=== PATIENT | male | born 1985 | race Caucasian/White ===

== ENCOUNTER 2017-07-14 17:09 | Inpatient (IN) | payer SELFPAY ==
[~2017-07-14] VITALS: Ht 177.8 cm; Wt 84.4 kg
[2017-07-14 20:22] VITALS: BP 124/81
[2017-07-14] MEDS ORDERED: HEPARIN for IV BOLUS 10,000 UNIT/10 ML VIAL. IV PRN (21:00)
[2017-07-14] MEDS ORDERED: ACETAMINOPHEN 325 MG TABLET. PO PRN (21:00)
[2017-07-14] MEDS: MORPHINE SULFATE 4 MG/ML DISP.SYRIN. IV PRN (21:40)
[2017-07-14] MEDS: TEMAZEPAM 15 MG CAPSULE PO PRN (22:46)
[2017-07-14] MEDS: HYDROcodone/APAP 5/325MG 1 TAB TABLET PO PRN (22:47)
[2017-07-14 23:20] VITALS: BP 126/59
[2017-07-15 03:15] VITALS: BP 109/64
[2017-07-15] MEDS: HYDROcodone/APAP 5/325MG 1 TAB TABLET PO PRN ×5 (03:41→21:22)
[2017-07-15 05:40] LABS: BASO # 0.1 x10^3/uL (0.0-0.2); BASO % 1 % (0-3); EOS % 5 % (0-3); HEMATOCRIT 39.8 % (39.0-53.0); HEMOGLOBIN 13.5 g/dL (13.0-17.5); LYMPH % 16 % (24-48); MEAN CORPUSCULAR HEMOGLOBIN 33 pg (25-35); MEAN CORPUSCULAR HGB CONC 34 g/dL (31-37); MEAN CORPUSCULAR VOLUME 98 fL (79-100); MONO % 19 % (0-9); NEUT % 60 % (31-73); PLATELET COUNT 186 x10^3/uL (140-400); RED BLOOD COUNT 4.08 x10^6/uL (4.30-5.70); RED CELL DISTRIBUTION WIDTH 13.2 % (11.5-14.5); WHITE BLOOD COUNT 6.4 x10^3/uL (4.0-11.0)
[2017-07-15 05:44] LABS: CALCIUM 8.4 mg/dL (8.5-10.1); CREATININE 0.8 mg/dL (0.7-1.3); GFR 113.5
--- NOTE | 2017-07-15 07:10 | PDOC2 ---
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 He states that he had an episode of poison dale and then subsequently had what he describes as a viral event where he in a lot of his family had upper respiratory symptoms and fevers and chills for approximately a week. Following this he noted some fullness in his left lower extremity which gradually progressed towards pain. This prompted him to present for evaluation. Indeed he was found to have extensive left lower extremity deep vein thrombosis extending to and above the inguinal ligament. A she denies any family history of hypercoagulable condition or any previous episodes of deep vein thrombosis. 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 Otherwise he remains relatively active with his family. He denies any chest pain, or shortness of breath. A CT scan of the chest was performed revealing no evidence of pulmonary embolism. Past Medical History Cardiovascular: No pertinent hx Pulmonary: No pertinent hx GI: No pertinent hx Heme/Onc: No pertinent hx Psych: No pertinent hx Musculoskeletal: No pain Rheumatologic: No pertinent hx Infectious disease: No pertinent hx ENT: No pertinent hx Renal/: No pertinent hx Endocrine: No pertinent hx Dermatology: No pertinent hx Past Surgical History Past Surgical History He has no surgical history Family History Family History There is no family history for clotting disorders or deep vein thrombosis, his parents are both living and in good health Social History Social History He denies tobacco abuse, alcohol abuse, or illicit drug use Current Medications Current Medications Current Medications Morphine Sulfate 2 mg PRN Q2HR PRN IV PAIN Last administered on 07/14/17 21:40 ; Start 07/14/17 at 21:15 Acetaminophen/ Hydrocodone Bitart (Lortab 5/325) 1 tab PRN Q4HRS PRN PO MILD PAIN Last administered on 07/15/17 03:41; Start 07/14/17 at 21:00 Acetaminophen (Tylenol) 650 mg PRN Q6HRS PRN PO Headaches, Temp > 101.5F; Start 07/14/17 at 21:00 Heparin Sodium/ Dextrose 500 ml @ 0 mls/hr CONT PRN IV SEE I/O RECORD; Start at 21:00 Heparin Sodium (Porcine) (Heparin Sodium) 2,700 unit PRN Q6HRS PRN IV FOR UFH LEVEL LESS THAN 0.2; Start 07/14/17 at 21:00 Heparin Sodium (Porcine) (Heparin Sodium) 1,350 unit PRN Q6HRS PRN IV FOR UFH LEVEL 0.2 - 0.29; Start 07/14/17 at 21:00 Temazepam (Restoril) 15 mg PRN QHS PRN PO INSOMNIA Last administered on t 22:46; Start 07/14/17 at 21:00 Active Scripts Active Reported No Known Medications Prior To Admisstion (Info) Each 1 Each Allergies Allergies: Coded Allergies: No Known Allergies (Verified Allergy, Unknown, 07/14/17) Physical Exam General: Alert, Oriented X3, Cooperative, No acute distress HEENT: Atraumatic, PERRLA, EOMI Lungs: Clear to auscultation, Normal air movement Heart: Regular rate, Normal S1, Normal S2 Abdomen: Normal bowel sounds, Soft, No tenderness, No hepatosplenomegaly, No masses Extremities: No clubbing, No cyanosis, Normal pulses, Other (there is swelling of the left lower extremity at the thigh and the calf which is larger in circumference than the right lower extremity, there are no evidence of chronic venous insufficiency skin changes, there are no varicose veins.) Skin: No rashes, No breakdown, No significant lesion Neuro: Normal gait, Normal speech, Strength at 5/5 X4 ext, Sensation intact, Cranial nerves 3-12 NL MUSCULOSKELETAL: No joint tenderness, No deformity, No swelling, Full range of motion without pain Vitals VITALS Vital Signs Date Time Temp Pulse Resp B/P (MAP) Pulse Ox O2 Delivery O2 Flow Rate FiO2 07/15/17 04:41 20 96 Room Air 07/15/17 03:15 98.5 89 109/64 (79) 98.5 Labs Labs Laboratory Tests Test 07/14/17 22:30 07/15/17 04:30 07/15/17 05:00 Heparin Anti-Xa Act, Unfractionated 0.46 IU/mL (0.30-0.70) 0.38 IU/mL (0.30-0.70) White Blood Count 6.4 x10^3/uL (4.0-11.0) Red Blood Count 4.08 x10^6/uL (4.30-5.70) Hemoglobin 13.5 g/dL (13.0-17.5) Hematocrit 39.8 % (39.0-53.0) Mean Corpuscular Volume 98 fL (79-100) Mean Corpuscular Hemoglobin 33 pg (25-35) Mean Corpuscular Hemoglobin Concent 34 g/dL (31-37) Red Cell Distribution Width 13.2 % (11.5-14.5) Platelet Count 186 x10^3/uL (140-400) Neutrophils (%) (Auto) 60 % (31-73) Lymphocytes (%) (Auto) 16 % (24-48) Monocytes (%) (Auto) 19 % (0-9) Eosinophils (%) (Auto) 5 % (0-3) Basophils (%) (Auto) 1 % (0-3) Neutrophils # (Auto) 3.8 x10^3uL (1.8-7.7) Lymphocytes # (Auto) 1.0 x10^3/uL (1.0-4.8) Monocytes # (Auto) 1.2 x10^3/uL (0.0-1.1) Eosinophils # (Auto) 0.3 x10^3/uL (0.0-0.7) Basophils # (Auto) 0.1 x10^3/uL (0.0-0.2) Sodium Level 138 mmol/L (136-145) Potassium Level 4.0 mmol/L (3.5-5.1) Chloride Level 101 mmol/L (98-107) Carbon Dioxide Level 27 mmol/L (21-32) Anion Gap 10 (6-14) Blood Urea Nitrogen 11 mg/dL (8-26) Creatinine 0.8 mg/dL (0.7-1.3) Estimated GFR (Cockcroft-Gault) 113.5 Glucose Level 89 mg/dL (70-99) Calcium Level 8.4 mg/dL (8.5-10.1) Laboratory Tests Test 07/14/17 22:30 07/15/17 04:30 07/15/17 05:00 Heparin Anti-Xa Act, Unfractionated 0.46 IU/mL (0.30-0.70) 0.38 IU/mL (0.30-0.70) White Blood Count 6.4 x10^3/uL (4.0-11.0) Red Blood Count 4.08 x10^6/uL (4.30-5.70) Hemoglobin 13.5 g/dL (13.0-17.5) Hematocrit 39.8 % (39.0-53.0) Mean Corpuscular Volume 98 fL (79-100) Mean Corpuscular Hemoglobin 33 pg (25-35) Mean Corpuscular Hemoglobin Concent 34 g/dL (31-37) Red Cell Distribution Width 13.2 % (11.5-14.5) Platelet Count 186 x10^3/uL (140-400) Neutrophils (%) (Auto) 60 % (31-73) Lymphocytes (%) (Auto) 16 % (24-48) Monocytes (%) (Auto) 19 % (0-9) Eosinophils (%) (Auto) 5 % (0-3) Basophils (%) (Auto) 1 % (0-3) Neutrophils # (Auto) 3.8 x10^3uL (1.8-7.7) Lymphocytes # (Auto) 1.0 x10^3/uL (1.0-4.8) Monocytes # (Auto) 1.2 x10^3/uL (0.0-1.1) Eosinophils # (Auto) 0.3 x10^3/uL (0.0-0.7) Basophils # (Auto) 0.1 x10^3/uL (0.0-0.2) Sodium Level 138 mmol/L (136-145) Potassium Level 4.0 mmol/L (3.5-5.1) Chloride Level 101 mmol/L (98-107) Carbon Dioxide Level 27 mmol/L (21-32) Anion Gap 10 (6-14) Blood Urea Nitrogen 11 mg/dL (8-26) Creatinine 0.8 mg/dL (0.7-1.3) Estimated GFR (Cockcroft-Gault) 113.5 Glucose Level 89 mg/dL (70-99) Calcium Level 8.4 mg/dL (8.5-10.1) Images Images I did review his left lower extremity venous duplex which reveals extensive left lower extremity deep vein thrombosis extending to the level of the common femoral vein and above the inguinal ligament Assessment/Plan Assessment/Plan Unprovoked extensive left lower extremity deep vein thrombosis--I am not sure whether the patient's viral syndrome that he describes proceeding these events had any relation on the DVT that he now has. I will check genetic markers for hypercoagulable conditions. The entire [facility] hypercoagulable panel cannot be performed at this time since the patient is on anticoagulation already. I agree with continuation of therapeutic anticoagulation. I have communicated with interventional radiology and have recommended left lower extremity catheter directed thrombolytic therapy for iliofemoral deep vein thrombosis. The catheter access point will likely be through the popliteal vein. I discussed with the patient the procedure and the inherent risks but this will also be discussed by interventional radiology team that performs a procedure. All questions were answered to his satisfaction regarding this. I discussed that the procedure will help prevent future post phlebitic syndrome, and given his age I do think he would benefit from this. Following thrombolytic therapy, the patient can be transitioned to therapeutic anticoagulation with Xarelto. I will see him back in my clinic in 6 months for reevaluation and determination whether the patient will need continued anticoagulant therapy. I have ordered bilateral lower extremity graduated compression stockings 20-30 mmHg and he should use these during the day and remove them at night. The patient has no weightbearing restrictions and should not be on bed rest for deep vein thrombosis. Regular activity is recommended. All questions were answered to his and his 's satisfaction and again I will see him in 6 months in my office. Abel Bermeo DO, FACS, RPVI [employer] Vascular Surgery [facility] ABEL BERMEO Jul 15, 2017 07:10
[2017-07-15 07:44] VITALS: BP 119/73
[2017-07-15] MEDS ORDERED: ONDANSETRON ODT 4 MG TAB.RAPDIS. PO PRN (08:30)
[2017-07-15] MEDS ORDERED: ONDANSETRON PF 4 MG/2 ML VIAL. IV PRN ×2 (08:30→14:00)
--- NOTE | 2017-07-15 09:25 | PDOC ---
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 He wet to ER at [facility] and was found to have extensive LLE DVT extending from the popliteal vein through the left common iliac vein to the level of, but not including the IVC. His Left CIV appears somewhat narrow at the level of the R KRISSY raising possibility of May Thurner syndrome. He was placed on a heparin drip with his leg elevated, which has significantly improved leg swelling and comfort. We discussed treatment options including anticoagulation alone, vs catheter directed thrombolysis. Given extensive ileofemoral clot, his age, and lack of comorbidities, his is a good candidate for thrombolysis to improve his symptoms more rapidly, and to help minimize the chance/degree of post thrombotic syndrome. Will plan to start lysis on Tuesday. RINKU JEFFERY MD Jul 15, 2017 09:25
--- NOTE | 2017-07-15 09:48 | PDOC1 ---
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, noted acute onset left leg swelling, pain, NO signif past medical hx, US shows extensive DVT, and vasc sx has seen and plans on IR vein directed thrombolysis once he gets the heparin gtt over the weekend, NEver happened before, no recent travels or long rides but does have sedentary job, Denies fam hx of clots, hypercoag work up ordered with heme onc on board, Planned for xarelto x 6 mos and vasc sx will see him in 6 mso time Ambulate as tolerated Currently pain level is controlled Past Medical History Cardiovascular: No pertinent hx Pulmonary: No pertinent hx GI: No pertinent hx Heme/Onc: No pertinent hx Psych: No pertinent hx Musculoskeletal: No pain Rheumatologic: No pertinent hx Infectious disease: No pertinent hx ENT: No pertinent hx Renal/: No pertinent hx Endocrine: No pertinent hx Dermatology: No pertinent hx Past Surgical History Past Surgical History: No pertinent history Family History Family History: No Significant Social History Smoke: No ALCOHOL: none Drugs: None Current Medications Current Medications Current Medications Morphine Sulfate 2 mg PRN Q2HR PRN IV PAIN Last administered on 07/14/17 21:40 ; Start 07/14/17 at 21:15 Acetaminophen/ Hydrocodone Bitart (Lortab 5/325) 1 tab PRN Q4HRS PRN PO MILD PAIN Last administered on 07/15/17 09:30; Start 07/14/17 at 21:00 Acetaminophen (Tylenol) 650 mg PRN Q6HRS PRN PO Headaches, Temp > 101.5F; Start 07/14/17 at 21:00 Heparin Sodium/ Dextrose 500 ml @ 0 mls/hr CONT PRN IV SEE I/O RECORD; Start at 21:00 Heparin Sodium (Porcine) (Heparin Sodium) 2,700 unit PRN Q6HRS PRN IV FOR UFH LEVEL LESS THAN 0.2; Start 07/14/17 at 21:00 Heparin Sodium (Porcine) (Heparin Sodium) 1,350 unit PRN Q6HRS PRN IV FOR UFH LEVEL 0.2 - 0.29; Start 07/14/17 at 21:00 Temazepam (Restoril) 15 mg PRN QHS PRN PO INSOMNIA Last administered on t 22:46; Start 07/14/17 at 21:00 Ondansetron HCl (Zofran) 4 mg PRN Q6HRS PRN IV NAUSEA/VOMITING; Start 07/15/17 at 08:30 Ondansetron HCl (Zofran Odt) 4 mg PRN Q6HRS PRN PO NAUSEA/VOMITING; Start 07/15 at 08:30 Active Scripts Active Reported No Known Medications Prior To Admisstion (Info) Each 1 Each Allergies Allergies: Coded Allergies: No Known Allergies (Verified Allergy, Unknown, 07/14/17) ROS Review of System left leg pain, all else is neg Physical Exam General: Alert, Oriented X3, Cooperative, No acute distress HEENT: Atraumatic, PERRLA, EOMI, Mucous membr. moist/pink Lungs: Clear to auscultation, Normal air movement Heart: S1S2, RRR, no thrills, no rubs, no gallops Cardiovascular: S1, S2 Abdomen: Normal bowel sounds, Soft, No tenderness, No hepatosplenomegaly, No masses Male Genitals Exam: normal genitalia, normal prostate Rectal Exam: not examined Extremities: Other (left leg swollen up to the thigh, positive Homans sign, slightly warm to touch, palpabole pulses, no limited ROM) Skin: No rashes, No breakdown, No significant lesion Neuro: Normal gait, Normal speech, Strength at 5/5 X4 ext, Normal tone, Sensation intact, Cranial nerves 3-12 NL, Reflexes 2+ Vitals Vitals Vital Signs Date Time Temp Pulse Resp B/P (MAP) Pulse Ox O2 Delivery O2 Flow Rate FiO2 07/15/17 09:30 Room Air 07/15/17 07:44 98.7 95 19 119/73 (88) 96 98.7 Labs Labs Laboratory Tests Test 07/14/17 22:30 07/15/17 04:30 07/15/17 05:00 Heparin Anti-Xa Act, Unfractionated 0.46 IU/mL (0.30-0.70) 0.38 IU/mL (0.30-0.70) White Blood Count 6.4 x10^3/uL (4.0-11.0) Red Blood Count 4.08 x10^6/uL (4.30-5.70) Hemoglobin 13.5 g/dL (13.0-17.5) Hematocrit 39.8 % (39.0-53.0) Mean Corpuscular Volume 98 fL (79-100) Mean Corpuscular Hemoglobin 33 pg (25-35) Mean Corpuscular Hemoglobin Concent 34 g/dL (31-37) Red Cell Distribution Width 13.2 % (11.5-14.5) Platelet Count 186 x10^3/uL (140-400) Neutrophils (%) (Auto) 60 % (31-73) Lymphocytes (%) (Auto) 16 % (24-48) Monocytes (%) (Auto) 19 % (0-9) Eosinophils (%) (Auto) 5 % (0-3) Basophils (%) (Auto) 1 % (0-3) Neutrophils # (Auto) 3.8 x10^3uL (1.8-7.7) Lymphocytes # (Auto) 1.0 x10^3/uL (1.0-4.8) Monocytes # (Auto) 1.2 x10^3/uL (0.0-1.1) Eosinophils # (Auto) 0.3 x10^3/uL (0.0-0.7) Basophils # (Auto) 0.1 x10^3/uL (0.0-0.2) Sodium Level 138 mmol/L (136-145) Potassium Level 4.0 mmol/L (3.5-5.1) Chloride Level 101 mmol/L (98-107) Carbon Dioxide Level 27 mmol/L (21-32) Anion Gap 10 (6-14) Blood Urea Nitrogen 11 mg/dL (8-26) Creatinine 0.8 mg/dL (0.7-1.3) Estimated GFR (Cockcroft-Gault) 113.5 Glucose Level 89 mg/dL (70-99) Calcium Level 8.4 mg/dL (8.5-10.1) Laboratory Tests Test 07/14/17 22:30 07/15/17 04:30 07/15/17 05:00 Heparin Anti-Xa Act, Unfractionated 0.46 IU/mL (0.30-0.70) 0.38 IU/mL (0.30-0.70) White Blood Count 6.4 x10^3/uL (4.0-11.0) Red Blood Count 4.08 x10^6/uL (4.30-5.70) Hemoglobin 13.5 g/dL (13.0-17.5) Hematocrit 39.8 % (39.0-53.0) Mean Corpuscular Volume 98 fL (79-100) Mean Corpuscular Hemoglobin 33 pg (25-35) Mean Corpuscular Hemoglobin Concent 34 g/dL (31-37) Red Cell Distribution Width 13.2 % (11.5-14.5) Platelet Count 186 x10^3/uL (140-400) Neutrophils (%) (Auto) 60 % (31-73) Lymphocytes (%) (Auto) 16 % (24-48) Monocytes (%) (Auto) 19 % (0-9) Eosinophils (%) (Auto) 5 % (0-3) Basophils (%) (Auto) 1 % (0-3) Neutrophils # (Auto) 3.8 x10^3uL (1.8-7.7) Lymphocytes # (Auto) 1.0 x10^3/uL (1.0-4.8) Monocytes # (Auto) 1.2 x10^3/uL (0.0-1.1) Eosinophils # (Auto) 0.3 x10^3/uL (0.0-0.7) Basophils # (Auto) 0.1 x10^3/uL (0.0-0.2) Sodium Level 138 mmol/L (136-145) Potassium Level 4.0 mmol/L (3.5-5.1) Chloride Level 101 mmol/L (98-107) Carbon Dioxide Level 27 mmol/L (21-32) Anion Gap 10 (6-14) Blood Urea Nitrogen 11 mg/dL (8-26) Creatinine 0.8 mg/dL (0.7-1.3) Estimated GFR (Cockcroft-Gault) 113.5 Glucose Level 89 mg/dL (70-99) Calcium Level 8.4 mg/dL (8.5-10.1) VTE Prophylaxis Ordered VTE Prophylaxis Devices: Yes VTE Pharmacological Prophylaxi: Yes Assessment/Plan Assessment/Plan 1. extensive left lower extremity deep vein thrombosis extending to the level of the common femoral vein and above the inguinal ligament PLAN: Admit in pt HEparin gtt over the weekend Pain control both PO and iV NO NSAIDs as already on heparin gtt REg diet Ambulate ad alize as tolerated LYSIS TUESDAY Dw pt and family and RN SERG MUELLER MD Jul 15, 2017 09:48
[2017-07-15 09:52] LABS: % EOS 8 % (0-5); PLT ESTIMATE ADEQUATE (ADEQUATE)
[2017-07-15 10:20] VITALS: BP 118/67
[2017-07-15] MEDS: HEPARIN 25,000UTS/500ML PREMIX 500 ML IV PRN (10:57)
[2017-07-15 15:07] VITALS: BP 122/73
[2017-07-15] MEDS: MORPHINE SULFATE 4 MG/ML DISP.SYRIN. IV PRN ×2 (15:26→20:21)
[2017-07-15 19:30] VITALS: BP 122/78
--- NOTE | 2017-07-15 20:58 | CONS ---
DATE OF CONSULTATION: 07/15/2017 REQUESTING PHYSICIAN: Dr. Deo Munson. REASON FOR CONSULTATION: Extensive DVT of the left lower extremity. 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 He reports that initially he had poison oak in the left lower extremity and there was evidence of swelling, which then improved. Then, he started noticing worsening edema in the left lower extremity. He works for billing for [employer], and he spends most of his time sitting down at home working. He underwent left lower extremity venous Doppler at [facility] on 07/14/2017 which revealed extensive deep vein thrombosis in the left femoral and popliteal veins extending into the calf. He underwent CT angiogram of the chest on 07/14/2017 that did not reveal any evidence of pulmonary embolism. He also had a CT scan of the abdomen and pelvis on 07/14/2017 which revealed evidence of acute DVT within the left common femoral vein extending up to the level of inferior vena cava bifurcation. Right common iliac vein is patient. There is evidence of moderate hepatic steatosis. There is also evidence of circumferential bladder wall thickening, which may represent cystitis. He was transferred to [facility] and he was started on heparin drip. Vascular surgery was consulted and the patient was evaluated by Dr. Horacio Crouch. Hypercoagulable state workup with factor V Leiden and prothrombin gene mutation was ordered. Rest of the labs were not done because he is already on anticoagulation. Dr. Crouch recommended interventional radiology consultation to perform thrombolysis for the iliofemoral deep vein thrombosis. This would help prevent future post phlebitic syndrome given his young age. I was asked to see the patient for any further recommendations for DVT. PAST MEDICAL HISTORY: No history of DVT in the past. He denies any medical problems. SOCIAL HISTORY: No smoking or alcohol abuse. 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 FAMILY HISTORY: Grandmother had thromboembolic event. REVIEW OF SYSTEMS: A 12-point review of system was performed. Pertinent positives are mentioned in the history of present illness. Rest of the system review is negative. PHYSICAL EXAMINATION: GENERAL APPEARANCE: The patient is a 32-year-old gentleman who is in no acute cardiorespiratory distress. VITAL SIGNS: Blood pressure 118/67, temperature 98.5. HEENT: Atraumatic, normocephalic. Eyes: No icterus. NECK: Supple. CHEST: Bilaterally symmetrical. No crepitations or rhonchi heard. HEART: S1, S2 normal. ABDOMEN: Soft, nontender, no hepatosplenomegaly. CENTRAL NERVOUS SYSTEM: No focal deficits. LYMPHATICS: No lymphadenopathy. SKIN: No rashes. PSYCHOLOGIC: Mood and affect are appropriate. MUSCULOSKELETAL: He has left lower extremity edema. LABORATORY DATA: WBC is 6.4, hemoglobin 13.5, platelet count 186. Creatinine 0.8, calcium 8.4. IMPRESSION AND PLAN: 1. Deep vein thrombosis of the left lower extremity. Deep vein thrombosis extending up to the bifurcation of inferior vena cava. I appreciate vascular surgery consultation. I agree with the recommendations for thrombolysis, which should help with prevention of postphlebitic syndrome. I discussed with interventional radiology, Dr. Nasim Goldman. Dr. Goldman would plan to start thrombolysis on 07/18/2017. He mentioned that he may need at least 2 days of intervention. In the meantime, he will continue heparin. I agree with Dr. Horacio Crouch' recommendation to change to an oral anticoagulant prior to discharge. The patient will continue anticoagulation for 6 months and follow up with Dr. Horacio Crouch after 6 months for further recommendations regarding anticoagulation. I agree with the above ongoing management and no further recommendations at this time. Please call if needed. 2. Edema in the left lower extremity secondary to deep vein thrombosis. 3. CT scan of the chest, abdomen and pelvis is negative for malignancy. Clinically, he does not have any signs or symptoms to suggest malignancy. This is an unprovoked clot. Agree with hypercoagulable state workup as ordered. HUBERT POLLARD MD DR: MIAN/nadiya JOB#: [id number] / [id number] DEO FerreiraD
[2017-07-15] MEDS: TEMAZEPAM 15 MG CAPSULE PO PRN (21:08)
[2017-07-15 23:00] VITALS: BP 129/71
[2017-07-16] VITALS (7 sets, daily range): BP systolic 121–131; BP diastolic 53–82
--- NOTE | 2017-07-16 00:49 | ACF ---
Admission Forms Criteria DEEP VENOUS THROMBOSIS OF LOWER EXTREMITIES Clinical Indications for Admission to Inpatient Care ([place]/check or initial the applicable condition/criteria) Admission is indicated for 1 or more of the following(1)(2)(3)(4)(5)(6): [ ]I. Patient at high risk for acute complications (eg, hemorrhage) of anticoagulation indicated by1 or more of the following: [ ]a) Bleeding before anticoagulation [ ]b) Recent surgery (eg, within 3 months) that increases risk of catastrophic bleeding (eg, spinal surgery, intracranial surgery, cardiovascular surgery) [ ]c) Recent GIbleeding (eg, within 3 months) or known increased risk of GI bleed (eg, esophageal varices, current ulcer) [ ]d) Recent (eg, within 3 months) ischemic stroke [ ]e) History of intracranial bleeding (eg, hemorrhagic stroke) [ ]f) History of active bleeding when anticoagulated [ ]g) Active substance abuse [ ]h) Other risk factor thought to place patient at high risk such that ability to rapidly reverse anticoagulation is necessary (eg, discontinue parenteral unfractionated heparin, use of reversal agent) [ ]II. Limb-threatening thrombosis (eg, phlegmasia cerulea dolens) [ ]III. Thrombolysis (eg, catheter-directed) or pharmacomechanical thrombectomy needed[A][B](7) [ ]IV. Vena cava filter placement needed (eg, unable to anticoagulate)[C](7) [X]V. Thrombosis while on anticoagulation [ ]. with delivery planned (eg, 37 or more weeks' gestation) [ ]VII. Contraindication to outpatient use of medication with rapid anticoagulation effect[D]as indicated by ALL of the following: [ ]a) Contraindication to use of upj-urxbxvedl-jilydf heparin[E][F] indicated by1 or more of the following(11): [ ]1) Documented current or history of heparin-induced thrombocytopenia( 10) [ ]2) Severe thrombocytopenia (eg, platelet count less than 50,000/mm3( 50 x109/L)) [ ]3) Allergy to heparin, hxf-hdaxcemzj-zylqay heparin, or product components [ ]4) Renal failure (creatinine clearance less than 30 mL/min/1.73m2( 0.50 mL/sec/1.73m2) or on dialysis) [ ]5) Need for neuraxial anesthesia or spinal puncture anticipated [ ]6) Inability to manage self-injection (eg, by patient, caregiver, or visiting nurse) [ ]b) Contraindication to use of fondaparinux indicated by1 or more of the following: [ ]1) Documented current or history of heparin-induced thrombocytopenia( 10) [ ]2) Severethrombocytopenia (eg, platelet count less than 50,000/mm3(50 x109/L)) [ ]3) Allergy to fondaparinux, related drugs, or product components [ ]4) Renal failure (creatinine clearance less than 30 mL/min/1.73m2( 0.50 mL/sec/1.73m2) or on dialysis) [ ]5) [ ]6) Liver disease with coagulopathy (eg, elevated INR due to liver disease) [ ]7) Mechanical heart valve [ ]8) Need for neuraxial anesthesia or spinal puncture anticipated [ ]9) Inability to manage self-injection (eg, by patient,caregiver, or visiting nurse) [ ]c) Contraindication to use of oral direct thrombin inhibitor (eg, dabigatran) or oral coagulation factor Xa inhibitor (eg,rivaroxaban, apixaban)[E ][F]indicated by1 or moreof the following(12)(13): [ ]1) Severe thrombocytopenia (eg, platelet count less than 50,000/mm3( 50 x109/L)) [ ]2) Allergy to medication or product components [ ]3) Renal failure (creatinine clearance less than 30 mL/min/1.73m2( 0.50 mL/sec/1.73m2) or on dialysis) [ ]4) [ ]5) Liver disease with coagulopathy (eg, elevated INR due to liver disease) [ ]6) Mechanical heart valve [ ]7) Need for neuraxial anesthesia or spinal puncture anticipated [ ]VIII. Personal or family history of bleeding tendency or familial bleeding disorder that requires inpatient admission rather than observation care (see Deep Venous Thrombosis of Lower Extremities: Observation Care guideline as appropriate) because of1 or more of the following: [ ]a) Significant allergic, autoimmune (thrombocytopenia), or coagulopathic reaction occurs in response to anticoagulation. [ ]b) Other significant finding or clinical condition judged not to be within scope of observation care Extended stay beyond goal length of stay may be needed for(1)(26): [ ]a) Acute bleeding secondary to anticoagulation [ ]b) Inadequate oral anticoagulation [ ]c) Recurrent thromboembolism(7) [ ]d) Heparin-induced thrombocytopenia(10) The original [facility] content created by [facility] has been revised. The portions of the content which have been revised are identified through the use of italic text, and [facility] has neither reviewed nor approved the modified material. All other unmodified content is copyright [facility]. Please see references footnoted in the original [facility] edition 2014 Admission Criteria Met?: Yes EDUARDO GOMEZ Jul 16, 2017 00:49
[2017-07-16] MEDS: HYDROcodone/APAP 5/325MG 1 TAB TABLET PO PRN ×6 (01:58→23:07)
[2017-07-16] MEDS: MORPHINE SULFATE 4 MG/ML DISP.SYRIN. IV PRN ×4 (01:58→22:38)
[2017-07-16] MEDS: HEPARIN 25,000UTS/500ML PREMIX 500 ML IV PRN ×2 (02:02→18:33)
[2017-07-16 05:30] LABS: HEMATOCRIT 38.9 % (39.0-53.0); HEMOGLOBIN 13.7 g/dL (13.0-17.5); RED BLOOD COUNT 4.11 x10^6/uL (4.30-5.70); RED CELL DISTRIBUTION WIDTH 13.2 % (11.5-14.5); WHITE BLOOD COUNT 6.9 x10^3/uL (4.0-11.0)
[2017-07-16] MEDS: HEPARIN for IV BOLUS 10,000 UNIT/10 ML VIAL. IV PRN ×2 (07:42→21:57)
--- NOTE | 2017-07-16 10:30 | PDOC ---
PROGRESS NOTES Chief Complaint Chief Complaint 1. extensive left lower extremity deep vein thrombosis extending to the level of the common femoral vein and above the inguinal ligament History of Present Illness History of Present Illness No probs overnight Ambulating PAin controlled NO bleeding HEparin gtt running Dw Dr. Horacio Crouch Tuesday PLAN: Admit in pt HEparin gtt over the weekend Pain control both PO and iV NO NSAIDs as already on heparin gtt REg diet Ambulate ad alize as tolerated Vein directed LYSIS TUESDAY Then xarelto x 6 mos Ff up VAsc sx on month Dw pt and family and RN Vitals Vitals Vital Signs Date Time Temp Pulse Resp B/P (MAP) Pulse Ox O2 Delivery O2 Flow Rate FiO2 07/16/17 08:46 18 Room Air 07/16/17 07:26 99.8 106 131/81 (98) 95 99.8 Physical Exam General: Alert, Oriented X3, Cooperative, No acute distress Heart: Regular rate, Normal S1, Normal S2 Abdomen: Normal bowel sounds, Soft, No tenderness, No hepatosplenomegaly, No masses Extremities: Other (left leg swollen up to the thigh, positive Homans sign, slightly warm to touch, palpabole pulses, no limited ROM) Skin: No rashes, No breakdown, No significant lesion Labs LABS Laboratory Tests Test 07/16/17 05:00 White Blood Count 6.9 x10^3/uL (4.0-11.0) Red Blood Count 4.11 x10^6/uL (4.30-5.70) Hemoglobin 13.7 g/dL (13.0-17.5) Hematocrit 38.9 % (39.0-53.0) Mean Corpuscular Volume 95 fL (79-100) Mean Corpuscular Hemoglobin 33 pg (25-35) Mean Corpuscular Hemoglobin Concent 35 g/dL (31-37) Red Cell Distribution Width 13.2 % (11.5-14.5) Platelet Count 226 x10^3/uL (140-400) Heparin Anti-Xa Act, Unfractionated 0.24 IU/mL (0.30-0.70) Review of Systems Review of Systems denies 14 pt Comment Review of Relevant I have reviewed the following items pauline (where applicable) has been applied. Labs Laboratory Tests Test 07/14/17 22:30 07/15/17 04:30 07/15/17 05:00 07/16/17 05:00 Heparin Anti-Xa Act, Unfractionated 0.46 IU/mL (0.30-0.70) 0.38 IU/mL (0.30-0.70) 0.24 IU/mL (0.30-0.70) White Blood Count 6.4 x10^3/uL (4.0-11.0) 6.9 x10^3/uL (4.0-11.0) Red Blood Count 4.08 x10^6/uL (4.30-5.70) 4.11 x10^6/uL (4.30-5.70) Hemoglobin 13.5 g/dL (13.0-17.5) 13.7 g/dL (13.0-17.5) Hematocrit 39.8 % (39.0-53.0) 38.9 % (39.0-53.0) Mean Corpuscular Volume 98 fL (79-100) 95 fL (79-100) Mean Corpuscular Hemoglobin 33 pg (25-35) 33 pg (25-35) Mean Corpuscular Hemoglobin Concent 34 g/dL (31-37) 35 g/dL (31-37) Red Cell Distribution Width 13.2 % (11.5-14.5) 13.2 % (11.5-14.5) Platelet Count 186 x10^3/uL (140-400) 226 x10^3/uL (140-400) Neutrophils (%) (Auto) 60 % (31-73) Lymphocytes (%) (Auto) 16 % (24-48) Monocytes (%) (Auto) 19 % (0-9) Eosinophils (%) (Auto) 5 % (0-3) Basophils (%) (Auto) 1 % (0-3) Neutrophils # (Auto) 3.8 x10^3uL (1.8-7.7) Lymphocytes # (Auto) 1.0 x10^3/uL (1.0-4.8) Monocytes # (Auto) 1.2 x10^3/uL (0.0-1.1) Eosinophils # (Auto) 0.3 x10^3/uL (0.0-0.7) Basophils # (Auto) 0.1 x10^3/uL (0.0-0.2) Segmented Neutrophils % 52 % (35-66) Band Neutrophils % 1 % (0-9) Lymphocytes % 21 % (24-48) Monocytes % 18 % (0-10) Eosinophils % 8 % (0-5) Platelet Estimate Adequate (ADEQUATE) Sodium Level 138 mmol/L (136-145) Potassium Level 4.0 mmol/L (3.5-5.1) Chloride Level 101 mmol/L (98-107) Carbon Dioxide Level 27 mmol/L (21-32) Anion Gap 10 (6-14) Blood Urea Nitrogen 11 mg/dL (8-26) Creatinine 0.8 mg/dL (0.7-1.3) Estimated GFR (Cockcroft-Gault) 113.5 Glucose Level 89 mg/dL (70-99) Calcium Level 8.4 mg/dL (8.5-10.1) Laboratory Tests Test 07/16/17 05:00 White Blood Count 6.9 x10^3/uL (4.0-11.0) Red Blood Count 4.11 x10^6/uL (4.30-5.70) Hemoglobin 13.7 g/dL (13.0-17.5) Hematocrit 38.9 % (39.0-53.0) Mean Corpuscular Volume 95 fL (79-100) Mean Corpuscular Hemoglobin 33 pg (25-35) Mean Corpuscular Hemoglobin Concent 35 g/dL (31-37) Red Cell Distribution Width 13.2 % (11.5-14.5) Platelet Count 226 x10^3/uL (140-400) Heparin Anti-Xa Act, Unfractionated 0.24 IU/mL (0.30-0.70) Medications Current Medications Morphine Sulfate 2 mg PRN Q2HR PRN IV PAIN Last administered on 07/16/17 07:45 ; Start 07/14/17 at 21:15 Acetaminophen/ Hydrocodone Bitart (Lortab 5/325) 1 tab PRN Q4HRS PRN PO MILD PAIN Last administered on 07/16/17 08:46; Start 07/14/17 at 21:00 Acetaminophen (Tylenol) 650 mg PRN Q6HRS PRN PO Headaches, Temp > 101.5F; Start 07/14/17 at 21:00 Heparin Sodium/ Dextrose 500 ml @ 0 mls/hr CONT PRN IV SEE I/O RECORD Last administered on 07/16/17 02:02; Start 07/14/17 at 21:00 Heparin Sodium (Porcine) (Heparin Sodium) 2,700 unit PRN Q6HRS PRN IV FOR UFH LEVEL LESS THAN 0.2; Start 07/14/17 at 21:00 Heparin Sodium (Porcine) (Heparin Sodium) 1,350 unit PRN Q6HRS PRN IV FOR UFH LEVEL 0.2 - 0.29 Last administered on 07/16/17 07:42; Start 07/14/17 at 21:00 Temazepam (Restoril) 15 mg PRN QHS PRN PO INSOMNIA Last administered on 21:08; Start 07/14/17 at 21:00 Ondansetron HCl (Zofran) 4 mg PRN Q6HRS PRN IV NAUSEA/VOMITING; Start 07/15/17 at 08:30; Stop 07/15/17 at 13:49; Status DC Ondansetron HCl (Zofran Odt) 4 mg PRN Q6HRS PRN PO NAUSEA/VOMITING; Start 07/15 at 08:30 Ondansetron HCl (Zofran) 4 mg PRN Q6HRS PRN IV NAUSEA/VOMITING; Start 07/15/17 at 14:00 Info (Anti-Coagulation Monitoring By Pharmacy) 1 each PRN DAILY PRN MC SEE COMMENTS; Start 07/15/17 at 14:00 Active Scripts Active Reported No Known Medications Prior To Admisstion (Info) Each 1 Each Vitals/I & O Vital Sign - Last 24 Hours 07/15/17 07/15/17 07/15/17 07/15/17 13:08 14:11 15:07 15:26 Temp 98.8 98.8 Pulse 97 Resp 18 B/P (MAP) 122/73 (89) Pulse Ox 97 97 98 O2 Delivery Room Air Room Air Room Air 07/15/17 07/15/17 07/15/17 07/15/17 17:00 17:12 19:30 19:45 Temp 99.1 99.1 Pulse 102 Resp 22 B/P (MAP) 122/78 (93) Pulse Ox 98 97 O2 Delivery Room Air Room Air Room Air 07/15/17 07/15/17 07/15/17/26/17 20:21 21:22 23:00 01:58 Temp 99.8 99.8 Pulse 104 Resp 18 20 22 18 B/P (MAP) 129/71 (90) Pulse Ox 96 O2 Delivery Room Air Room Air Room Air Room Air 07/16/17 07/16/17 07/16/17 07/16/17 01:58 02:28 02:58 03:40 Temp 99.1 99.1 Pulse 104 Resp 20 20 20 22 B/P (MAP) 126/68 (87) Pulse Ox 95 O2 Delivery Room Air Room Air Room Air Room Air 07/16/17 07/16/17 07/16/17 07/16/17 07:26 07:45 08:00 08:46 Temp 99.8 99.8 Pulse 106 Resp 22 18 18 B/P (MAP) 131/81 (98) Pulse Ox 95 O2 Delivery Room Air Room Air Room Air Room Air Intake and Output 07/15/17 07/15/17 07/16/17 15:00 23:00 07:00 Intake Total 240 ml 1000 ml 636 ml Balance 240 ml 1000 ml 636 ml SERG MUELLER MD Jul 16, 2017 10:30
[2017-07-16] MEDS: ANTI-COAG MONITOR BY PHARMACY. MC PRN (11:27)
[2017-07-16] MEDS: TEMAZEPAM 15 MG CAPSULE PO PRN (21:59)
[2017-07-17] MEDS: HYDROcodone/APAP 5/325MG 1 TAB TABLET PO PRN ×5 (03:15→23:20)
[2017-07-17 03:35] VITALS: BP 102/56
[2017-07-17 07:30] VITALS: BP 123/78
[2017-07-17] MEDS: ANTI-COAG MONITOR BY PHARMACY. MC PRN (08:37)
[2017-07-17] MEDS: HEPARIN 25,000UTS/500ML PREMIX 500 ML IV PRN ×2 (09:02→21:20)
[2017-07-17] MEDS: MORPHINE SULFATE 4 MG/ML DISP.SYRIN. IV PRN ×4 (09:57→23:20)
[2017-07-17 11:00] VITALS: BP 113/64
--- NOTE | 2017-07-17 11:54 | PDOC ---
PROGRESS NOTES Chief Complaint Chief Complaint 1. extensive left lower extremity deep vein thrombosis extending to the level of the common femoral vein and above the inguinal ligament 2. FEVERS (07/17) History of Present Illness History of Present Illness Started to have low grade temps last night Tmax 100.3 NOt coughing Likely from the extensive DVT left leg IS ambulating as tolerated PAin is controlled PLAN: HEparin gtt over the weekend Lysis planned on tuesday by iR. NPO post MN Then home on xarelto x 6 mos - dw Dr. Horacio Elizondo To ff up Dr. Horacio Elizondo after6 mos - Dw. VAsc sx MAy check UA (fevers) TYlenol prn for fevers Dw RN Pepito Vitals Vitals Vital Signs Date Time Temp Pulse Resp B/P (MAP) Pulse Ox O2 Delivery O2 Flow Rate FiO2 07/17/17 11:00 98.8 102 18 113/64 (80) 94 Room Air 98.8 Physical Exam General: Alert, Oriented X3, Cooperative, No acute distress Heart: Regular rate, Normal S1, Normal S2 Abdomen: Normal bowel sounds, Soft, No tenderness, No hepatosplenomegaly, No masses Extremities: Other (left leg swollen up to the thigh, positive Homans sign, slightly warm to touch, palpabole pulses, no limited ROM) Skin: No rashes, No breakdown, No significant lesion Labs LABS Laboratory Tests Test 07/16/17 13:15 07/16/17 20:40 07/17/17 04:00 07/17/17 10:00 Heparin Anti-Xa Act, Unfractionated 0.33 IU/mL (0.30-0.70) 0.29 IU/mL (0.30-0.70) 0.39 IU/mL (0.30-0.70) 0.36 IU/mL (0.30-0.70) Review of Systems Review of Systems fevers, stable left leg pain Comment Review of Relevant I have reviewed the following items pauline (where applicable) has been applied. Labs Laboratory Tests Test 07/16/17 05:00 07/16/17 13:15 07/16/17 20:40 07/17/17 04:00 White Blood Count 6.9 x10^3/uL (4.0-11.0) Red Blood Count 4.11 x10^6/uL (4.30-5.70) Hemoglobin 13.7 g/dL (13.0-17.5) Hematocrit 38.9 % (39.0-53.0) Mean Corpuscular Volume 95 fL (79-100) Mean Corpuscular Hemoglobin 33 pg (25-35) Mean Corpuscular Hemoglobin Concent 35 g/dL (31-37) Red Cell Distribution Width 13.2 % (11.5-14.5) Platelet Count 226 x10^3/uL (140-400) Heparin Anti-Xa Act, Unfractionated 0.24 IU/mL (0.30-0.70) 0.33 IU/mL (0.30-0.70) 0.29 IU/mL (0.30-0.70) 0.39 IU/mL (0.30-0.70) Test 07/17/17 10:00 Heparin Anti-Xa Act, Unfractionated 0.36 IU/mL (0.30-0.70) Laboratory Tests Test 07/16/17 13:15 07/16/17 20:40 07/17/17 04:00 07/17/17 10:00 Heparin Anti-Xa Act, Unfractionated 0.33 IU/mL (0.30-0.70) 0.29 IU/mL (0.30-0.70) 0.39 IU/mL (0.30-0.70) 0.36 IU/mL (0.30-0.70) Medications Current Medications Morphine Sulfate 2 mg PRN Q2HR PRN IV PAIN Last administered on 07/17/17 09:57 ; Start 07/14/17 at 21:15 Acetaminophen/ Hydrocodone Bitart (Lortab 5/325) 1 tab PRN Q4HRS PRN PO MILD PAIN Last administered on 07/17/17 08:22; Start 07/14/17 at 21:00 Acetaminophen (Tylenol) 650 mg PRN Q6HRS PRN PO Headaches, Temp > 101.5F; Start 07/14/17 at 21:00 Heparin Sodium/ Dextrose 500 ml @ 0 mls/hr CONT PRN IV SEE I/O RECORD Last administered on 07/17/17 09:02; Start 07/14/17 at 21:00 Heparin Sodium (Porcine) (Heparin Sodium) 2,700 unit PRN Q6HRS PRN IV FOR UFH LEVEL LESS THAN 0.2; Start 07/14/17 at 21:00 Heparin Sodium (Porcine) (Heparin Sodium) 1,350 unit PRN Q6HRS PRN IV FOR UFH LEVEL 0.2 - 0.29 Last administered on 07/16/17 21:57; Start 07/14/17 at 21:00 Temazepam (Restoril) 15 mg PRN QHS PRN PO INSOMNIA Last administered on 21:59; Start 07/14/17 at 21:00 Ondansetron HCl (Zofran) 4 mg PRN Q6HRS PRN IV NAUSEA/VOMITING; Start 07/15/17 at 08:30; Stop 07/15/17 at 13:49; Status DC Ondansetron HCl (Zofran Odt) 4 mg PRN Q6HRS PRN PO NAUSEA/VOMITING; Start 07/15 at 08:30 Ondansetron HCl (Zofran) 4 mg PRN Q6HRS PRN IV NAUSEA/VOMITING; Start 07/15/17 at 14:00 Info (Anti-Coagulation Monitoring By Pharmacy) 1 each PRN DAILY PRN SEE COMMENTS Last administered on 07/17/17 08:37; Start 07/15/17 at 14:00 Active Scripts Active Reported No Known Medications Prior To Admisstion (Info) Each 1 Each Vitals/I & O Vital Sign - Last 24 Hours 07/16/17 07/16/17 07/16/17 07/16/17 13:57 13:58 15:30 15:31 Resp 18 18 18 18 Pulse Ox 95 95 95 O2 Delivery Room Air Room Air Room Air 07/16/17 07/16/17 07/16/17 07/16/17 15:42 17:54 19:15 20:00 Temp 99.6 98.6 99.6 98.6 Pulse 106 114 Resp 22 18 16 B/P (MAP) 121/82 (95) 122/71 (88) Pulse Ox 97 97 96 O2 Delivery Room Air Room Air Room Air Room Air 07/16/17 07/16/17 07/16/17 07/17/17 22:01 22:38 23:00 03:15 Temp 98.5 98.5 Pulse 103 Resp 18 B/P (MAP) 128/68 (88) Pulse Ox 100 O2 Delivery Room Air Room Air Room Air Room Air 07/17/17 07/17/17 07/17/17 07/17/17 03:35 07:30 08:00 08:22 Temp 100.0 99.9 100.0 99.9 Pulse 101 102 Resp 18 18 18 B/P (MAP) 102/56 (71) 123/78 (93) Pulse Ox 98 98 98 O2 Delivery Room Air Room Air Room Air Room Air 07/17/17 07/17/17 07/17/17 09:31 09:57 11:00 Temp 98.8 98.8 Pulse 102 Resp 18 18 B/P (MAP) 113/64 (80) Pulse Ox 98 98 94 O2 Delivery Room Air Room Air Room Air Intake and Output 07/16/17 07/16/17 07/17/17 15:00 23:00 07:00 Intake Total 1060 ml 828 ml Output Total 1000 ml Balance 1060 ml -172 ml SERG MUELLER MD Jul 17, 2017 11:54
[2017-07-17 14:01] LABS: BILIRUBIN,URINE NEGATIVE (NEG); GLUCOSE,URINE NEGATIVE (NEG); NITRITE,URINE NEGATIVE (NEG); PROTEIN,URINE NEGATIVE (NEG-TRACE); UROBILINOGEN,URINE 0.2 mg/dL (0.2 mg/dL)
[2017-07-17 14:20] LABS: BACTERIA,URINE 0 /HPF (0-FEW); RBC,URINE OCC /HPF (0-2); SQUAMOUS EPITHELIAL CELL,UR FEW /LPF; WBC,URINE 0 /HPF (0-4)
[2017-07-17 15:00] VITALS: BP 117/62
[2017-07-17 19:10] VITALS: BP 114/67
[2017-07-17] MEDS: TEMAZEPAM 15 MG CAPSULE PO PRN (19:31)
[2017-07-17 23:10] VITALS: BP 122/65
[2017-07-18] VITALS (16 sets, daily range): BP systolic 106–129; BP diastolic 57–89
[2017-07-18] MEDS: HYDROcodone/APAP 5/325MG 1 TAB TABLET PO PRN ×6 (03:21→23:03)
[2017-07-18] MEDS: MORPHINE SULFATE 4 MG/ML DISP.SYRIN. IV PRN ×5 (03:21→20:56)
[2017-07-18 05:38] LABS: BASO % 1 % (0-3); EOS % 6 % (0-3); HEMATOCRIT 39.1 % (39.0-53.0); HEMOGLOBIN 13.7 g/dL (13.0-17.5); LYMPH # 0.6 x10^3/uL (1.0-4.8); LYMPH % 14 % (24-48); MEAN CORPUSCULAR HEMOGLOBIN 33 pg (25-35); MEAN CORPUSCULAR HGB CONC 35 g/dL (31-37); MEAN CORPUSCULAR VOLUME 96 fL (79-100); MONO % 19 % (0-9); NEUT % 60 % (31-73); PLATELET COUNT 313 x10^3/uL (140-400); WHITE BLOOD COUNT 4.5 x10^3/uL (4.0-11.0)
[2017-07-18] MEDS ORDERED: LIDOCAINE 1% / SOD BICARB 8.4% 20 ML VIAL. IJ ONE ×2 (08:17→09:30)
[2017-07-18] MEDS ORDERED: IOHEXOL 300 MG/ML 100ML VIAL. ONE (08:17)
[2017-07-18 08:20] LABS: PROTHROMBIN TIME PATIENT 12.7 SEC (11.7-14.0)
[2017-07-18] MEDS ORDERED: ALTEPLASE 10 MG in IV NORMAL SALINE 100ML 100 ML IV ONE (08:45)
--- NOTE | 2017-07-18 08:53 | PDOC ---
PROGRESS NOTES Subjective Subjective c/c - f/u of DVT Objective Objective Vital Signs Date Time Temp Pulse Resp B/P (MAP) Pulse Ox O2 Delivery O2 Flow Rate FiO2 07/18/17 07:00 97.9 90 19 106/57 (73) 98 Room Air 97.9 Intake and Output 07/18/17 07:00 Intake Total 400 ml Balance 400 ml Intake Oral 400 ml Physical Exam Heart: Normal S1, Normal S2 General: Alert, Oriented X3 Lungs: Clear to auscultation Neuro: Normal speech Psych/Mental Status: Mental status NL Assessment Assessment IMPRESSION AND PLAN: 1. Deep vein thrombosis of the left lower extremity, unprovoked. Deep vein thrombosis extending up to the bifurcation of inferior vena cava. I appreciate vascular surgery consultation. I agree with the recommendations for thrombolysis, which should help with prevention of postphlebitic syndrome. I discussed with interventional radiology, Dr. Nasim Goldman. Dr. Goldman would plan to start thrombolysis on 07/18/2017. He mentioned that he may need at least [address] scan of the chest, abdomen and pelvis is negative for malignancy. Clinically, he does not have any signs or symptoms to suggest malignancy. Agree with hypercoagulable state workup as ordered. I agree with Dr. Horacio Crouch' recommendation to change to an oral anticoagulant prior to discharge. The patient will continue anticoagulation for 6 months and follow up with Dr. Horacio Crouch after 6 months for further recommendations regarding anticoagulation. I agree with the above ongoing management and no further recommendations at this time. Please call if needed. 2. Edema in the left lower extremity secondary to deep vein thrombosis. Improving. Comment Review of Relevant I have reviewed the following items pauline (where applicable) has been applied. Labs Laboratory Tests Test 07/16/17 13:15 07/16/17 20:40 07/17/17 04:00 07/17/17 10:00 Heparin Anti-Xa Act, Unfractionated 0.33 IU/mL (0.30-0.70) 0.29 IU/mL (0.30-0.70) 0.39 IU/mL (0.30-0.70) 0.36 IU/mL (0.30-0.70) Test 07/17/17 12:00 07/18/17 04:57 Urine Collection Type Unknown Urine Color Yellow Urine Clarity Clear Urine pH 7.0 Urine Specific [place] 1.015 Urine Protein Negative mg/dL (NEG-TRACE) Urine Glucose (UA) Negative mg/dL (NEG) Urine Ketones (Stick) Negative mg/dL (NEG) Urine Blood Negative (NEG) Urine Nitrite Negative (NEG) Urine Bilirubin Negative (NEG) Urine Urobilinogen Dipstick 0.2 mg/dL (0.2 mg/dL) Urine Leukocyte Esterase Negative (NEG) Urine RBC Occ /HPF (0-2) Urine WBC 0 /HPF (0-4) Urine Squamous Epithelial Cells Few /LPF Urine Bacteria 0 /HPF (0-FEW) Urine Mucus Marked /LPF White Blood Count 4.5 x10^3/uL (4.0-11.0) Red Blood Count 4.10 x10^6/uL (4.30-5.70) Hemoglobin 13.7 g/dL (13.0-17.5) Hematocrit 39.1 % (39.0-53.0) Mean Corpuscular Volume 96 fL (79-100) Mean Corpuscular Hemoglobin 33 pg (25-35) Mean Corpuscular Hemoglobin Concent 35 g/dL (31-37) Red Cell Distribution Width 13.0 % (11.5-14.5) Platelet Count 313 x10^3/uL (140-400) Neutrophils (%) (Auto) 60 % (31-73) Lymphocytes (%) (Auto) 14 % (24-48) Monocytes (%) (Auto) 19 % (0-9) Eosinophils (%) (Auto) 6 % (0-3) Basophils (%) (Auto) 1 % (0-3) Neutrophils # (Auto) 2.7 x10^3uL (1.8-7.7) Lymphocytes # (Auto) 0.6 x10^3/uL (1.0-4.8) Monocytes # (Auto) 0.8 x10^3/uL (0.0-1.1) Eosinophils # (Auto) 0.3 x10^3/uL (0.0-0.7) Basophils # (Auto) 0.0 x10^3/uL (0.0-0.2) Prothrombin Time 12.7 SEC (11.7-14.0) Prothromb Time International Ratio 1.0 (0.8-1.1) Activated Partial Thromboplast Time 52 SEC (24-38) Heparin Anti-Xa Act, Unfractionated 0.21 IU/mL (0.30-0.70) Laboratory Tests Test 07/17/17 10:00 07/17/17 12:00 07/18/17 04:57 Heparin Anti-Xa Act, Unfractionated 0.36 IU/mL (0.30-0.70) 0.21 IU/mL (0.30-0.70) Urine Collection Type Unknown Urine Color Yellow Urine Clarity Clear Urine pH 7.0 Urine Specific [place] 1.015 Urine Protein Negative mg/dL (NEG-TRACE) Urine Glucose (UA) Negative mg/dL (NEG) Urine Ketones (Stick) Negative mg/dL (NEG) Urine Blood Negative (NEG) Urine Nitrite Negative (NEG) Urine Bilirubin Negative (NEG) Urine Urobilinogen Dipstick 0.2 mg/dL (0.2 mg/dL) Urine Leukocyte Esterase Negative (NEG) Urine RBC Occ /HPF (0-2) Urine WBC 0 /HPF (0-4) Urine Squamous Epithelial Cells Few /LPF Urine Bacteria 0 /HPF (0-FEW) Urine Mucus Marked /LPF White Blood Count 4.5 x10^3/uL (4.0-11.0) Red Blood Count 4.10 x10^6/uL (4.30-5.70) Hemoglobin 13.7 g/dL (13.0-17.5) Hematocrit 39.1 % (39.0-53.0) Mean Corpuscular Volume 96 fL (79-100) Mean Corpuscular Hemoglobin 33 pg (25-35) Mean Corpuscular Hemoglobin Concent 35 g/dL (31-37) Red Cell Distribution Width 13.0 % (11.5-14.5) Platelet Count 313 x10^3/uL (140-400) Neutrophils (%) (Auto) 60 % (31-73) Lymphocytes (%) (Auto) 14 % (24-48) Monocytes (%) (Auto) 19 % (0-9) Eosinophils (%) (Auto) 6 % (0-3) Basophils (%) (Auto) 1 % (0-3) Neutrophils # (Auto) 2.7 x10^3uL (1.8-7.7) Lymphocytes # (Auto) 0.6 x10^3/uL (1.0-4.8) Monocytes # (Auto) 0.8 x10^3/uL (0.0-1.1) Eosinophils # (Auto) 0.3 x10^3/uL (0.0-0.7) Basophils # (Auto) 0.0 x10^3/uL (0.0-0.2) Prothrombin Time 12.7 SEC (11.7-14.0) Prothromb Time International Ratio 1.0 (0.8-1.1) Activated Partial Thromboplast Time 52 SEC (24-38) Medications Current Medications Morphine Sulfate 2 mg PRN Q2HR PRN IV PAIN Last administered on 07/18/17 03:21 ; Start 07/14/17 at 21:15 Acetaminophen/ Hydrocodone Bitart (Lortab 5/325) 1 tab PRN Q4HRS PRN PO MILD PAIN Last administered on 07/18/17 03:21; Start 07/14/17 at 21:00 Acetaminophen (Tylenol) 650 mg PRN Q6HRS PRN PO Headaches, Temp > 101.5F; Start 07/14/17 at 21:00 Heparin Sodium/ Dextrose 500 ml @ 0 mls/hr CONT PRN IV SEE I/O RECORD Last administered on 07/17/17 21:20; Start 07/14/17 at 21:00 Heparin Sodium (Porcine) (Heparin Sodium) 2,700 unit PRN Q6HRS PRN IV FOR UFH LEVEL LESS THAN 0.2; Start 07/14/17 at 21:00 Heparin Sodium (Porcine) (Heparin Sodium) 1,350 unit PRN Q6HRS PRN IV FOR UFH LEVEL 0.2 - 0.29 Last administered on 07/16/17 21:57; Start 07/14/17 at 21:00 Temazepam (Restoril) 15 mg PRN QHS PRN PO INSOMNIA Last administered on 19:31; Start 07/14/17 at 21:00 Ondansetron HCl (Zofran) 4 mg PRN Q6HRS PRN IV NAUSEA/VOMITING; Start 07/15/17 at 08:30; Stop 07/15/17 at 13:49; Status DC Ondansetron HCl (Zofran Odt) 4 mg PRN Q6HRS PRN PO NAUSEA/VOMITING; Start 07/15 at 08:30 Ondansetron HCl (Zofran) 4 mg PRN Q6HRS PRN IV NAUSEA/VOMITING; Start 07/15/17 at 14:00 Info (Anti-Coagulation Monitoring By Pharmacy) 1 each PRN DAILY PRN MC SEE COMMENTS Last administered on 07/17/17t 08:37; Start 07/15/17 at 14:00 Lidocaine/Sodium Bicarbonate (Buffered Lidocaine 1%) 20 ml STK-MED ONCE IJ ; Start 07/18/17 at 08:17; Stop 07/18/17 at 08:18; Status DC Heparin Sodium/ Sodium Chloride 500 ml @ As Directed STK-MED ONCE .ROUTE ; Start 07/18/17 at 08:17; Stop 07/18/17 at 08:18; Status DC Iohexol (Omnipaque 300 Mg/ml) 100 ml STK-MED ONCE .ROUTE ; Start 07/18/17 at 08: 17; Stop 07/18/17 at 08:18; Status DC Alteplase, Recombinant 10 mg/ Sodium Chloride 100 ml @ 0 mls/hr 1X ONCE IV ; Start 07/18/17 at 08:45; Stop 07/18/17 at 08:46; Status DC Heparin Sodium/ Sodium Chloride 500 ml @ As Directed STK-MED ONCE .ROUTE ; Start 07/18/17 at 08:42; Stop 07/18/17 at 08:43; Status DC Active Scripts Active Reported No Known Medications Prior To Admisstion (Info) Each 1 Each Vitals/I & O Vital Sign - Last 24 Hours 07/17/17 07/17/17 07/17/17 07/17/17 09:57 11:00 13:07 14:26 Temp 98.8 98.8 Pulse 102 Resp 18 18 18 B/P (MAP) 113/64 (80) Pulse Ox 98 94 94 94 O2 Delivery Room Air Room Air Room Air 07/17/17 07/17/17 07/17/17 07/17/17 14:40 15:00 16:35 19:10 Temp 98.4 98.7 98.4 98.7 Pulse 103 105 Resp 18 18 16 B/P (MAP) 117/62 (80) 114/67 (83) Pulse Ox 94 97 97 98 O2 Delivery Room Air Room Air Room Air 07/17/17 07/17/17 07/17/17 07/17/17 19:31 19:31 20:01 23:10 Temp 98.8 98.8 Pulse 93 Resp 18 18 15 B/P (MAP) 122/65 (84) Pulse Ox 98 O2 Delivery Room Air Room Air Room Air Room Air 07/17/17 07/17/17 07/18/17 07/18/17 23:20 23:20 03:10 03:21 Temp 98.5 98.5 Pulse 102 Resp 20 20 15 18 B/P (MAP) 114/68 (83) Pulse Ox 97 O2 Delivery Room Air Room Air Room Air Room Air 07/18/17 07/18/17 07/18/17 07/18/17 03:21 03:51 04:21 07:00 Temp 97.9 97.9 Pulse 90 Resp 20 18 18 19 B/P (MAP) 106/57 (73) Pulse Ox 98 O2 Delivery Room Air Room Air Room Air Room Air Intake and Output 07/17/17 07/17/17 07/18/17 15:00 23:00 07:00 Intake Total 400 ml 0 ml Balance 400 ml 0 ml HUBERT POLLARD MD Jul 18, 2017 08:53
[2017-07-18] MEDS ORDERED: fentaNYL PF VIAL 250 MCG/5 ML VIAL ONE (09:11)
[2017-07-18] MEDS ORDERED: MIDAZOLAM HCL/PF 5 MG/5 ML VIAL. ONE (09:11)
[2017-07-18] MEDS ORDERED: fentaNYL PF VIAL 250 MCG/5 ML VIAL IV ONE (09:30)
[2017-07-18] MEDS ORDERED: IOHEXOL 300 MG/ML 100ML VIAL. IART ONE (09:30)
[2017-07-18] MEDS ORDERED: CONTRAST GIVEN MC PRN (09:30)
[2017-07-18] MEDS ORDERED: MIDAZOLAM HCL/PF 5 MG/5 ML VIAL. IV ONE (09:30)
--- NOTE | 2017-07-18 10:06 | PDOC ---
MODERATE SEDATION ASSESSMENT RISKS/ALTERNATIVES Risks/Alternatives Risks and alternatives of this type of sedation and procedure discussed with: RISK/ALTERNATIVES: Patient H & P ON CHART H & P H & P on chart and reviewed for co-morbid conditions and appropriate labs. H&P ON CHART: Yes STATUS PREG STATUS ASSESSED: Yes MEDS/ALLERGIES REVIEWED Meds/Allergies Reviewed Medications and Allergies including time and route of recently administered narcotics and sedatives. MEDS/ALLERGIES REVIEWED: Yes ASA RATING ASA RATING: II AIRWAY ASSESSMENT Airway Assessment Airway patency, oral function limitations, presence of caps, crowns, dentures, partials, and ability to extend neck assessed. AIRWAY ASSESSMENT: Yes MALLAMPATI SCORE MALLAMPATI SCORE: II PRE-SEDATION ASSESSMENT PRE-SEDATION ASSESSMENT: Yes MICHOACANO MUNOZ MD Jul 18, 2017 10:06
--- NOTE | 2017-07-18 10:07 | PDOC ---
BRIEF OPERATIVE NOTE Pre-Op Diagnosis LLE DVT Post-Op Diagnosis same Procedure Performed PICC line. LLE venogram and thrombectomy and thrombolysis Surgeon Osbaldo Anesthesia Type: Conscious Sedation Findings Extensive occlusive LLE thrombosis Complications No immediate MICHOACANO MUNOZ MD Jul 18, 2017 10:07
[2017-07-18] MEDS: ALTEPLASE IV SCH ×3 (10:40→23:58)
[2017-07-18] MEDS: NORMAL SALINE IV SCH ×3 (10:40→23:58)
[2017-07-18] MEDS: ANTI-COAG MONITOR BY PHARMACY. MC PRN (11:11)
--- NOTE | 2017-07-18 14:58 | RAD ---
Procedure: Right upper extremity PICC line placement, and left lower extremity venogram, thrombectomy, and thrombolysis Clinical Indication: 32-year-old male with acute extensive left lower extremity DVT Sedation: Conscious sedation was administered for 32 minutes. The patient was monitored by a qualified independent observer throughout the time of sedation. Please refer to the medical record for exact doses of medications utilized to achieve moderate sedation. Antibiotics: None Exposure: Kerma-Area Product: 86 Gycm2 Contrast: 10 cc of Omnipaque 300 contrast media Sterility: All elements of maximal sterile barrier technique including the use of a cap, mask, sterile gown, sterile gloves, large sterile sheet, appropriate hand hygiene, and 2% chlorhexidine for cutaneous antisepsis (or acceptable alternative antiseptic per current guidelines) were followed for this procedure. Consent: The procedure was explained in its entirety to the patient or the patients designated inbound customer service representative by a member of the treatment team, including a discussion of the risks, benefits and commonly accepted alternatives to the procedure, as well as the expected consequences of no therapy whatsoever. Discussion of the risks included, but was not limited to, those that are most frequent and those that are rare but possibly severe or life-threatening, as well as the possibility of unforeseen complications. Technique and Findings: Following informed consent, the patient was prepped and draped in usual sterile fashion. Ultrasound interrogation of the right arm revealed patency of the right basilic vein. A Hardcopy ultrasound image was recorded. As a 21-gauge micropuncture needle was used to gain access to this vein. The needle was exchanged over wire for a 5 [place] peel-away sheath which was used to deploy a PICC line under fluoroscopic guidance such that the distal tip resided at the cavoatrial junction. All lumens flushed and aspirated with ease. The catheter was then affixed to the skin, and attention was turned to the left popliteal fossa which was prepped and draped in usual sterile fashion. Ultrasound interrogation revealed thrombosis of the popliteal vein. Once again a hardcopy ultrasound image was recorded as a 21-gauge micropuncture needle was used to gain access to this vein. The needle was exchanged over a wire for 6 Mexican sheath. Contrast venography was then performed demonstrating complete occlusion of the left popliteal vein extending to the iliac venous confluence. An angled catheter was advanced into the IVC and contrast venography demonstrated wide patency of the IVC. The catheter was then exchanged over a wire for the AngioJet catheter and suction thrombectomy was performed throughout the distribution of thrombus extending from the common iliac vein to the popliteal vein. This was followed by a power pulse spray infusion of TPA. 70 cc of 0.1% tPA was infused in this manner. The AngioJet was then removed and a 50 cm infusion catheter was advanced over the wire and positioned with the distal tip in the common femoral vein, and TPA infusion was initiated. Complications: No immediate Impression: 1. Ultrasound and fluoroscopic guided right upper extremity PICC line placement as described. 2. Left lower extremity venogram demonstrating complete thrombosis from the left common iliac vein to the popliteal vein. The IVC is patent. 3. Thrombectomy throughout the affected segment of the left lower extremity. 4. Initiation of thrombolysis throughout the affected segments of the left lower extremity vein as described.
--- NOTE | 2017-07-18 17:26 | PDOC ---
PROGRESS NOTES Chief Complaint Chief Complaint 1. EXTENSIVE L LE DVT up to the bifurcation of inferior vena cava: s/p thrombectomy/ thrombolysis today. cont anticoag protocol. appreciate Dr Olvera' s input: no evidence of underlying malignancy. Hypercoag W/U ongoing. plan for OAC (xarelto) at D/C for 6 months; F/U with Dr Horacio Crouch at that time for decisions re further anticoag needs. 2. LE edema: 2/2 DVT, improving 3. Pain: controlled on current regimen History of Present Illness History of Present Illness pain controlled. feels ok. no SOB or palpitations. abd pain resolved Vitals Vitals Vital Signs Date Time Temp Pulse Resp B/P (MAP) Pulse Ox O2 Delivery O2 Flow Rate FiO2 07/18/17 16:00 99.3 90 16 113/75 (88) 96 Room Air 99.3 07/18/17 10:52 2.0 Physical Exam General: Alert, Oriented X3, Cooperative, No acute distress Heart: Regular rate Lungs: Clear Abdomen: Normal bowel sounds, Soft, No tenderness Extremities: Other (left leg swollen up to the thigh, slightly warm to touch) Skin: No rashes Labs LABS Laboratory Tests Test 07/18/17 04:57 White Blood Count 4.5 x10^3/uL (4.0-11.0) Red Blood Count 4.10 x10^6/uL (4.30-5.70) Hemoglobin 13.7 g/dL (13.0-17.5) Hematocrit 39.1 % (39.0-53.0) Mean Corpuscular Volume 96 fL (79-100) Mean Corpuscular Hemoglobin 33 pg (25-35) Mean Corpuscular Hemoglobin Concent 35 g/dL (31-37) Red Cell Distribution Width 13.0 % (11.5-14.5) Platelet Count 313 x10^3/uL (140-400) Neutrophils (%) (Auto) 60 % (31-73) Lymphocytes (%) (Auto) 14 % (24-48) Monocytes (%) (Auto) 19 % (0-9) Eosinophils (%) (Auto) 6 % (0-3) Basophils (%) (Auto) 1 % (0-3) Neutrophils # (Auto) 2.7 x10^3uL (1.8-7.7) Lymphocytes # (Auto) 0.6 x10^3/uL (1.0-4.8) Monocytes # (Auto) 0.8 x10^3/uL (0.0-1.1) Eosinophils # (Auto) 0.3 x10^3/uL (0.0-0.7) Basophils # (Auto) 0.0 x10^3/uL (0.0-0.2) Prothrombin Time 12.7 SEC (11.7-14.0) Prothromb Time International Ratio 1.0 (0.8-1.1) Activated Partial Thromboplast Time 52 SEC (24-38) Heparin Anti-Xa Act, Unfractionated 0.21 IU/mL (0.30-0.70) GUNJAN BOBBY MD Jul 18, 2017 17:26
[2017-07-18 19:20] LABS: CREATININE 0.6 mg/dL (0.7-1.3); GFR 158.2; INR 1.6 (0.8-1.1); PROTHROMBIN TIME PATIENT 18.3 SEC (11.7-14.0)
[2017-07-18] MEDS: TEMAZEPAM 15 MG CAPSULE PO PRN (20:55)
[2017-07-19] VITALS (29 sets, daily range): BP systolic 98–137; BP diastolic 53–82
[2017-07-19 00:28] LABS: CALCIUM 8.7 mg/dL (8.5-10.1); CREATININE 0.7 mg/dL (0.7-1.3); GFR 132.4
[2017-07-19 00:29] LABS: INR 1.6 (0.8-1.1); PROTHROMBIN TIME PATIENT 18.2 SEC (11.7-14.0)
[2017-07-19] MEDS: MORPHINE SULFATE 4 MG/ML DISP.SYRIN. IV PRN ×5 (03:19→19:29)
[2017-07-19] MEDS ORDERED: IOHEXOL 300 MG/ML 100ML VIAL. ONE (07:46)
[2017-07-19] MEDS ORDERED: LIDOCAINE 1% / SOD BICARB 8.4% 20 ML VIAL. IJ ONE ×2 (07:47→09:00)
[2017-07-19 08:20] LABS: CALCIUM 8.7 mg/dL (8.5-10.1); CREATININE 0.7 mg/dL (0.7-1.3); GFR 132.4; POTASSIUM 4.1 mmol/L (3.5-5.1)
[2017-07-19] MEDS ORDERED: fentaNYL PF VIAL 100 MCG/2 ML VIAL ONE (08:33)
[2017-07-19] MEDS ORDERED: MIDAZOLAM HCL/PF 5 MG/5 ML VIAL. ONE (08:34)
[2017-07-19] MEDS ORDERED: MIDAZOLAM HCL/PF 5 MG/5 ML VIAL. IV ONE (09:00)
[2017-07-19] MEDS ORDERED: IOHEXOL 300 MG/ML 100ML VIAL. IART ONE (09:00)
[2017-07-19] MEDS ORDERED: fentaNYL PF VIAL 100 MCG/2 ML VIAL IV ONE (09:00)
[2017-07-19] MEDS ORDERED: CONTRAST GIVEN MC PRN (09:00)
--- NOTE | 2017-07-19 09:14 | PDOC ---
BRIEF OPERATIVE NOTE Pre-Op Diagnosis DVT Post-Op Diagnosis same Procedure Performed Thrombolysis day 2 and angioplasty of common and external iliac veins Surgeon Osbaldo Anesthesia Type: Conscious Sedation Findings Resolved DVT throughout the SFV with persistent dense occlusive thrombus in the CIV, EIV and CFV. This thrombus is denser and more organized than expected based on the clinical time course. An acute on chronic episode is suspected. Minimal improvement following angioplasty. Will resume thrombolysis. Anticipate mechanical thrombectomy, maceration and stent placement tomorrow. Complications No immediate MICHOACANO MUNOZ MD Jul 19, 2017 09:14
[2017-07-19 09:35] LABS: INR 1.3 (0.8-1.1); PROTHROMBIN TIME PATIENT 15.8 SEC (11.7-14.0)
--- NOTE | 2017-07-19 09:41 | RAD ---
Procedure: Left lower extremity venogram through existing catheter, venous thrombolysis dated 2, angioplasty of the left common and external iliac and common femoral veins. Clinical Indication: 32-year-old with extensive left lower extremity DVT undergoing thrombolysis Sedation: Conscious sedation was administered for 18 minutes. The patient was monitored by a qualified independent observer throughout the time of sedation. Please refer to the medical record for exact doses of medications utilized to achieve moderate sedation. Antibiotics: None Exposure: Kerma-Area Product: 88 Gycm2 Contrast: 80 cc of Omni view 300 Sterility: All elements of maximal sterile barrier technique including the use of a cap, mask, sterile gown, sterile gloves, large sterile sheet, appropriate hand hygiene, and 2% chlorhexidine for cutaneous antisepsis (or acceptable alternative antiseptic per current guidelines) were followed for this procedure. Consent: The procedure was explained in its entirety to the patient or the patients designated passenger representative by a member of the treatment team, including a discussion of the risks, benefits and commonly accepted alternatives to the procedure, as well as the expected consequences of no therapy whatsoever. Discussion of the risks included, but was not limited to, those that are most frequent and those that are rare but possibly severe or life-threatening, as well as the possibility of unforeseen complications. Technique and Findings: Following informed consent, the patient was prepped and draped in usual sterile fashion. Contrast venography was performed through the existing infusion catheter. This revealed persistent occlusive thrombosis throughout the external iliac and common femoral veins. The superficial femoral vein demonstrates wide patency with resolution of all previously seen thrombus. The catheter was then exchanged over a wire for a 7 mm x 80 mm angioplasty balloon and angioplasty of the left common iliac, external iliac, and common femoral veins was performed. Post angioplasty angiography demonstrated minimal improvement with significant amount of residual occlusive thrombus throughout this distribution. A 20 cm working length infusion catheter was then advanced over the wire and positioned across the area of persistent occlusion, and thrombolysis was resumed. Complications: No immediate Impression: 1. Post thrombolysis venogram demonstrating resolution of thrombus throughout the superficial femoral vein with persistent occlusive thrombus involving the left common femoral through common femoral iliac segments. 2. Angioplasty of the left common femoral through common iliac veins, with minimal improvement. 3. Resumption of pharmacological thrombolysis.
[2017-07-19] MEDS: HYDROcodone/APAP 5/325MG 1 TAB TABLET PO PRN ×3 (09:50→20:44)
[2017-07-19] MEDS: NORMAL SALINE IV SCH ×4 (11:55→23:05)
[2017-07-19] MEDS: ALTEPLASE IV SCH ×4 (11:55→23:05)
[2017-07-19 12:39] LABS: INR 1.5 (0.8-1.1); PROTHROMBIN TIME PATIENT 16.9 SEC (11.7-14.0)
--- NOTE | 2017-07-19 13:11 | PDOC ---
PROGRESS NOTES Chief Complaint Chief Complaint 1. EXTENSIVE L LE DVT up to the bifurcation of inferior vena cava: s/p thrombectomy/ thrombolysis today. cont anticoag protocol. appreciate Dr Roblero 's help w/ management. no evidence of underlying malignancy. Hypercoag W/U ongoing. plan for OAC (xarelto) at D/C for 6 months; F/U with Dr Horacio Crouch at that time for decisions re further anticoag needs. 2. Anticoag rx: monitor coags and H/H closely. replete with cryo x10 for Fibr <100, notify MD for Hgb drop of <1g/dl 3. LE edema: 2/2 DVT, improving 4. Pain: controlled on current regimen CC time: 35min History of Present Illness History of Present Illness pain controlled. feels ok. no SOB or palpitations. Vitals Vitals Vital Signs Date Time Temp Pulse Resp B/P (MAP) Pulse Ox O2 Delivery O2 Flow Rate FiO2 07/19/17 11:54 20 96 Room Air 07/19/17 10:15 84 121/81 (94) 07/19/17 10:00 07/19/17 09:30 98.9 98.9 Physical Exam General: Alert, Oriented X3, Cooperative, No acute distress Heart: Regular rate Lungs: Clear Abdomen: Normal bowel sounds, Soft, No tenderness Extremities: Other (left leg swollen up to the thigh, slightly warm to touch) Skin: No rashes Labs LABS Laboratory Tests Test 07/18/17 16:30 07/18/17 17:30 07/19/17 00:02 07/19/17 05:30 Fibrinogen 133 mg/dL (200-440) 108 mg/dL (200-440) 66 mg/dL (200-440) 139 mg/dL (200-440) Hemoglobin 14.0 g/dL (13.0-17.5) 13.7 g/dL (13.0-17.5) Prothrombin Time 18.3 SEC (11.7-14.0) 18.2 SEC (11.7-14.0) 15.8 SEC (11.7-14.0) Prothromb Time International Ratio 1.6 (0.8-1.1) 1.6 (0.8-1.1) 1.3 (0.8-1.1) Activated Partial Thromboplast Time 65 SEC (24-38) 60 SEC (24-38) 43 SEC (24-38) Sodium Level 133 mmol/L (136-145) 135 mmol/L (136-145) Potassium Level 4.0 mmol/L (3.5-5.1) 4.0 mmol/L (3.5-5.1) Chloride Level 97 mmol/L (98-107) 98 mmol/L (98-107) Carbon Dioxide Level 28 mmol/L (21-32) 28 mmol/L (21-32) Anion Gap 8 (6-14) 9 (6-14) Blood Urea Nitrogen 10 mg/dL (8-26) 9 mg/dL (8-26) Creatinine 0.6 mg/dL (0.7-1.3) 0.7 mg/dL (0.7-1.3) Estimated GFR (Cockcroft-Gault) 158.2 132.4 Glucose Level 93 mg/dL (70-99) 94 mg/dL (70-99) Calcium Level 9.0 mg/dL (8.5-10.1) 8.7 mg/dL (8.5-10.1) Test 07/19/17 06:00 07/19/17 12:00 Hemoglobin 13.5 g/dL (13.0-17.5) 13.9 g/dL (13.0-17.5) Sodium Level 135 mmol/L (136-145) Potassium Level 4.1 mmol/L (3.5-5.1) Chloride Level 99 mmol/L (98-107) Carbon Dioxide Level 29 mmol/L (21-32) Anion Gap 7 (6-14) Blood Urea Nitrogen 9 mg/dL (8-26) Creatinine 0.7 mg/dL (0.7-1.3) Estimated GFR (Cockcroft-Gault) 132.4 Glucose Level 94 mg/dL (70-99) Calcium Level 8.7 mg/dL (8.5-10.1) Prothrombin Time 16.9 SEC (11.7-14.0) Prothromb Time International Ratio 1.5 (0.8-1.1) Activated Partial Thromboplast Time 51 SEC (24-38) Fibrinogen 116 mg/dL (200-440) GUNJAN BOBBY MD Jul 19, 2017 13:11
[2017-07-19 14:24] LABS: PROTHROMBIN GENE MUTATION Negative (.)
[2017-07-19 14:59] LABS: CALCIUM 8.8 mg/dL (8.5-10.1); CREATININE 0.6 mg/dL (0.7-1.3); GFR 158.2
[2017-07-19] MEDS: ANTI-COAG MONITOR BY PHARMACY. MC PRN (15:01)
--- NOTE | 2017-07-19 16:50 | PDOC ---
PROGRESS NOTES Subjective Subjective c/c - f/u of Deep vein thrombosis of the left lower extremity ROS - improved LLE edema Objective Objective Vital Signs Date Time Temp Pulse Resp B/P (MAP) Pulse Ox O2 Delivery O2 Flow Rate FiO2 07/19/17 15:00 82 14 122/70 (87) 97 Room Air 07/19/17 12:00 98.9 98.9 07/19/17 10:00 Intake and Output 07/20/17 07:00 Intake Total 600 ml Output Total 1350 ml Balance -750 ml Intake Oral 600 ml Output Urine Total 1350 ml Physical Exam Heart: Normal S1, Normal S2 General: Alert, Oriented X3 Lungs: Clear to auscultation Assessment Assessment IMPRESSION AND PLAN: 1. Deep vein thrombosis of the left lower extremity, unprovoked. Deep vein thrombosis extending up to the bifurcation of inferior vena cava. I appreciate vascular surgery consultation. I agree with the recommendations for thrombolysis started 07/18/17. Appreciate IR management. I agree with Dr. Horacio Crouch' recommendation to change to an oral anticoagulant prior to discharge. The patient will continue anticoagulation for 6 months and follow up with Dr. Horacio Crouch after 6 months for further recommendations regarding anticoagulation. I d/w Dr Angelo. 2. Edema in the left lower extremity secondary to deep vein thrombosis. Improving. Comment Review of Relevant I have reviewed the following items pauline (where applicable) has been applied. Labs Laboratory Tests Test 07/18/17 04:57 07/18/17 10:30 07/18/17 16:30 07/18/17 17:30 White Blood Count 4.5 x10^3/uL (4.0-11.0) Red Blood Count 4.10 x10^6/uL (4.30-5.70) Hemoglobin 13.7 g/dL (13.0-17.5) 14.0 g/dL (13.0-17.5) Hematocrit 39.1 % (39.0-53.0) Mean Corpuscular Volume 96 fL (79-100) Mean Corpuscular Hemoglobin 33 pg (25-35) Mean Corpuscular Hemoglobin Concent 35 g/dL (31-37) Red Cell Distribution Width 13.0 % (11.5-14.5) Platelet Count 313 x10^3/uL (140-400) Neutrophils (%) (Auto) 60 % (31-73) Lymphocytes (%) (Auto) 14 % (24-48) Monocytes (%) (Auto) 19 % (0-9) Eosinophils (%) (Auto) 6 % (0-3) Basophils (%) (Auto) 1 % (0-3) Neutrophils # (Auto) 2.7 x10^3uL (1.8-7.7) Lymphocytes # (Auto) 0.6 x10^3/uL (1.0-4.8) Monocytes # (Auto) 0.8 x10^3/uL (0.0-1.1) Eosinophils # (Auto) 0.3 x10^3/uL (0.0-0.7) Basophils # (Auto) 0.0 x10^3/uL (0.0-0.2) Prothrombin Time 12.7 SEC (11.7-14.0) 18.3 SEC (11.7-14.0) Prothromb Time International Ratio 1.0 (0.8-1.1) 1.6 (0.8-1.1) Activated Partial Thromboplast Time 52 SEC (24-38) 65 SEC (24-38) Heparin Anti-Xa Act, Unfractionated 0.21 IU/mL (0.30-0.70) Nasal Screen MRSA (PCR) Negative (Negative) Fibrinogen 133 mg/dL (200-440) 108 mg/dL (200-440) Sodium Level 133 mmol/L (136-145) Potassium Level 4.0 mmol/L (3.5-5.1) Chloride Level 97 mmol/L (98-107) Carbon Dioxide Level 28 mmol/L (21-32) Anion Gap 8 (6-14) Blood Urea Nitrogen 10 mg/dL (8-26) Creatinine 0.6 mg/dL (0.7-1.3) Estimated GFR (Cockcroft-Gault) 158.2 Glucose Level 93 mg/dL (70-99) Calcium Level 9.0 mg/dL (8.5-10.1) Test 07/19/17 00:02 07/19/17 05:30 07/19/17 06:00 07/19/17 12:00 Hemoglobin 13.7 g/dL (13.0-17.5) 13.5 g/dL (13.0-17.5) 13.9 g/dL (13.0-17.5) Prothrombin Time 18.2 SEC (11.7-14.0) 15.8 SEC (11.7-14.0) 16.9 SEC (11.7-14.0) Prothromb Time International Ratio 1.6 (0.8-1.1) 1.3 (0.8-1.1) 1.5 (0.8-1.1) Activated Partial Thromboplast Time 60 SEC (24-38) 43 SEC (24-38) 51 SEC (24-38) Fibrinogen 66 mg/dL (200-440) 139 mg/dL (200-440) 116 mg/dL (200-440) Sodium Level 135 mmol/L (136-145) 135 mmol/L (136-145) Potassium Level 4.0 mmol/L (3.5-5.1) 4.1 mmol/L (3.5-5.1) Chloride Level 98 mmol/L (98-107) 99 mmol/L (98-107) Carbon Dioxide Level 28 mmol/L (21-32) 29 mmol/L (21-32) Anion Gap 9 (6-14) 7 (6-14) Blood Urea Nitrogen 9 mg/dL (8-26) 9 mg/dL (8-26) Creatinine 0.7 mg/dL (0.7-1.3) 0.7 mg/dL (0.7-1.3) Estimated GFR (Cockcroft-Gault) 132.4 132.4 Glucose Level 94 mg/dL (70-99) 94 mg/dL (70-99) Calcium Level 8.7 mg/dL (8.5-10.1) 8.7 mg/dL (8.5-10.1) Test 07/19/17 14:30 Sodium Level 135 mmol/L (136-145) Potassium Level 4.0 mmol/L (3.5-5.1) Chloride Level 96 mmol/L (98-107) Carbon Dioxide Level 27 mmol/L (21-32) Anion Gap 12 (6-14) Blood Urea Nitrogen 8 mg/dL (8-26) Creatinine 0.6 mg/dL (0.7-1.3) Estimated GFR (Cockcroft-Gault) 158.2 Glucose Level 88 mg/dL (70-99) Calcium Level 8.8 mg/dL (8.5-10.1) Laboratory Tests Test 07/18/17 17:30 07/19/17 00:02 07/19/17 05:30 07/19/17 06:00 Hemoglobin 14.0 g/dL (13.0-17.5) 13.7 g/dL (13.0-17.5) 13.5 g/dL (13.0-17.5) Prothrombin Time 18.3 SEC (11.7-14.0) 18.2 SEC (11.7-14.0) 15.8 SEC (11.7-14.0) Prothromb Time International Ratio 1.6 (0.8-1.1) 1.6 (0.8-1.1) 1.3 (0.8-1.1) Activated Partial Thromboplast Time 65 SEC (24-38) 60 SEC (24-38) 43 SEC (24-38) Fibrinogen 108 mg/dL (200-440) 66 mg/dL (200-440) 139 mg/dL (200-440) Sodium Level 133 mmol/L (136-145) 135 mmol/L (136-145) 135 mmol/L (136-145) Potassium Level 4.0 mmol/L (3.5-5.1) 4.0 mmol/L (3.5-5.1) 4.1 mmol/L (3.5-5.1) Chloride Level 97 mmol/L (98-107) 98 mmol/L (98-107) 99 mmol/L (98-107) Carbon Dioxide Level 28 mmol/L (21-32) 28 mmol/L (21-32) 29 mmol/L (21-32) Anion Gap 8 (6-14) 9 (6-14) 7 (6-14) Blood Urea Nitrogen 10 mg/dL (8-26) 9 mg/dL (8-26) 9 mg/dL (8-26) Creatinine 0.6 mg/dL (0.7-1.3) 0.7 mg/dL (0.7-1.3) 0.7 mg/dL (0.7-1.3) Estimated GFR (Cockcroft-Gault) 158.2 132.4 132.4 Glucose Level 93 mg/dL (70-99) 94 mg/dL (70-99) 94 mg/dL (70-99) Calcium Level 9.0 mg/dL (8.5-10.1) 8.7 mg/dL (8.5-10.1) 8.7 mg/dL (8.5-10.1) Test 07/19/17 12:00 07/19/17 14:30 Hemoglobin 13.9 g/dL (13.0-17.5) Prothrombin Time 16.9 SEC (11.7-14.0) Prothromb Time International Ratio 1.5 (0.8-1.1) Activated Partial Thromboplast Time 51 SEC (24-38) Fibrinogen 116 mg/dL (200-440) Sodium Level 135 mmol/L (136-145) Potassium Level 4.0 mmol/L (3.5-5.1) Chloride Level 96 mmol/L (98-107) Carbon Dioxide Level 27 mmol/L (21-32) Anion Gap 12 (6-14) Blood Urea Nitrogen 8 mg/dL (8-26) Creatinine 0.6 mg/dL (0.7-1.3) Estimated GFR (Cockcroft-Gault) 158.2 Glucose Level 88 mg/dL (70-99) Calcium Level 8.8 mg/dL (8.5-10.1) Medications Current Medications Morphine Sulfate 2 mg PRN Q2HR PRN IV PAIN Last administered on 07/19/17 11:54 ; Start 07/14/17 at 21:15 Acetaminophen/ Hydrocodone Bitart (Lortab 5/325) 1 tab PRN Q4HRS PRN PO MILD PAIN Last administered on 07/18/17 10:39; Start 07/14/17 at 21:00 Acetaminophen (Tylenol) 650 mg PRN Q6HRS PRN PO Headaches, Temp > 101.5F; Start 07/14/17 at 21:00 Heparin Sodium/ Dextrose 500 ml @ 0 mls/hr CONT PRN IV SEE I/O RECORD Last administered on 07/17/17 21:20; Start 07/14/17 at 21:00; Stop 07/18/17 at 10:02 ; Status DC Heparin Sodium (Porcine) (Heparin Sodium) 2,700 unit PRN Q6HRS PRN IV FOR UFH LEVEL LESS THAN 0.2; Start 07/14/17 at 21:00; Stop 07/18/17 at 10:02; Status DC Heparin Sodium (Porcine) (Heparin Sodium) 1,350 unit PRN Q6HRS PRN IV FOR UFH LEVEL 0.2 - 0.29 Last administered on 07/16/17 21:57; Start 07/14/17 at 21:00; Stop 07/18/17 at 10:03; Status DC Temazepam (Restoril) 15 mg PRN QHS PRN PO INSOMNIA Last administered on 20:55; Start 07/14/17 at 21:00 Ondansetron HCl (Zofran) 4 mg PRN Q6HRS PRN IV NAUSEA/VOMITING; Start 07/15/17 at 08:30; Stop 07/15/17 at 13:49; Status DC Ondansetron HCl (Zofran Odt) 4 mg PRN Q6HRS PRN PO NAUSEA/VOMITING; Start 07/15 at 08:30 Ondansetron HCl (Zofran) 4 mg PRN Q6HRS PRN IV NAUSEA/VOMITING; Start 07/15/17 at 14:00 Info (Anti-Coagulation Monitoring By Pharmacy) 1 each PRN DAILY PRN MC SEE COMMENTS Last administered on 07/19/17 15:01; Start 07/15/17 at 14:00 Lidocaine/Sodium Bicarbonate (Buffered Lidocaine 1%) 20 ml STK-MED ONCE IJ ; Start 07/18/17 at 08:17; Stop 07/18/17 at 08:18; Status DC Heparin Sodium/ Sodium Chloride 500 ml @ As Directed STK-MED ONCE .ROUTE ; Start 07/18/17 at 08:17; Stop 07/18/17 at 08:18; Status DC Iohexol (Omnipaque 300 Mg/ml) 100 ml STK-MED ONCE .ROUTE ; Start 07/18/17 at 08: 17; Stop 07/18/17 at 08:18; Status DC Alteplase, Recombinant 10 mg/ Sodium Chloride 100 ml @ 0 mls/hr 1X ONCE IV Last administered on 07/18/17 10:15; Start 07/18/17 at 08:45; Stop 07/18/17 at 08:46; Status DC Heparin Sodium/ Sodium Chloride 500 ml @ As Directed STK-MED ONCE .ROUTE ; Start 07/18/17 at 08:42; Stop 07/18/17 at 08:43; Status DC Midazolam HCl (Versed) 5 mg STK-MED ONCE .ROUTE ; Start 07/18/17 at 09:11; Stop 07/18/17 at 09:12; Status DC Fentanyl Citrate (Fentanyl 5ml Vial) 250 mcg STK-MED ONCE .ROUTE ; Start at 09:11; Stop 07/18/17 at 09:12; Status DC Heparin Sodium/ Sodium Chloride 1,000 unit 1X ONCE IART Last administered on 09:30; Start 07/18/17 at 09:30; Stop 07/18/17 at 09:31; Status DC Lidocaine/Sodium Bicarbonate (Buffered Lidocaine 1%) 20 ml 1X ONCE IJ Last administered on 07/18/17 09:30; Start 07/18/17 at 09:30; Stop 07/18/17 at 09:31 ; Status DC Midazolam HCl (Versed) 5 mg 1X ONCE IV Last administered on 07/18/17 09:38; Start 07/18/17 at 09:30; Stop 07/18/17 at 09:31; Status DC Fentanyl Citrate (Fentanyl 5ml Vial) 250 mcg 1X ONCE IV Last administered on 09:38; Start 07/18/17 at 09:30; Stop 07/18/17 at 09:31; Status DC Iohexol (Omnipaque 300 Mg/ml) 100 ml 1X ONCE IART Last administered on 09:30; Start 07/18/17 at 09:30; Stop 07/18/17 at 09:31; Status DC Info (Do NOT chart on this entry -- for MONITORING) 1 each PRN DAILY PRN MC SEE COMMENTS; Start 07/18/17 at 09:30; Stop 07/20/17 at 09:29 Heparin Sodium/ Dextrose 500 ml @ 0 mls/hr CONT PRN IV SEE I/O RECORD; Start at 10:00 Alteplase, Recombinant 5 mg/ Sodium Chloride 50 ml @ 5 mls/hr Q10H IV Last administered on 07/18/17 23:58; Start 07/18/17 at 10:30; Stop 07/19/17 at 11:42 ; Status DC Acetaminophen/ Hydrocodone Bitart (Lortab 5/325) 2 tab PRN Q4HRS PRN PO PAIN MILD TO MOD Last administered on 07/19/17 13:59; Start 07/18/17 at 11:15 Iohexol (Omnipaque 300 Mg/ml) 100 ml STK-MED ONCE .ROUTE ; Start 07/19/17 at 07: 46; Stop 07/19/17 at 08:22; Status DC Lidocaine/Sodium Bicarbonate (Buffered Lidocaine 1%) 20 ml STK-MED ONCE IJ ; Start 07/19/17 at 07:47; Stop 07/19/17 at 08:22; Status DC Heparin Sodium/ Sodium Chloride 500 ml @ As Directed STK-MED ONCE .ROUTE ; Start 07/19/17 at 07:47; Stop 07/19/17 at 08:22; Status DC Fentanyl Citrate (Fentanyl 2ml Vial) 100 mcg STK-MED ONCE .ROUTE ; Start at 08:33; Stop 07/19/17 at 08:34; Status DC Midazolam HCl (Versed) 5 mg STK-MED ONCE .ROUTE ; Start 07/19/17 at 08:34; Stop 07/19/17 at 08:35; Status DC Heparin Sodium/ Sodium Chloride 1,000 unit 1X ONCE IART Last administered on 09:00; Start 07/19/17 at 09:00; Stop 07/19/17 at 09:01; Status DC Lidocaine/Sodium Bicarbonate (Buffered Lidocaine 1%) 20 ml 1X ONCE IJ Last administered on 07/19/17 09:00; Start 07/19/17 at 09:00; Stop 07/19/17 at 09:01 ; Status DC Midazolam HCl (Versed) 5 mg 1X ONCE IV Last administered on 07/19/17 09:00; Start 07/19/17 at 09:00; Stop 07/19/17 at 09:01; Status DC Fentanyl Citrate (Fentanyl 2ml Vial) 100 mcg 1X ONCE IV Last administered on 09:00; Start 07/19/17 at 09:00; Stop 07/19/17 at 09:01; Status DC Iohexol (Omnipaque 300 Mg/ml) 100 ml 1X ONCE IART Last administered on 09:00; Start 07/19/17 at 09:00; Stop 07/19/17 at 09:01; Status DC Info (Do NOT chart on this entry -- for MONITORING) 1 each PRN DAILY PRN MC SEE COMMENTS; Start 07/19/17 at 09:00; Stop 07/21/17 at 08:59 Alteplase, Recombinant 2.5 mg/Sodium Chloride 50 ml @ 10 mls/hr Q5H IV Last administered on 07/19/17t 15:42; Start 07/19/17 at 12:00 Active Scripts Active Reported No Known Medications Prior To Admisstion (Info) Each 1 Each MC Vitals/I & O Vital Sign - Last 24 Hours 07/18/17 07/18/17 07/18/17 07/18/17 17:00 17:42 18:00 19:00 Pulse 100 77 96 Resp 18 15 15 15 B/P (MAP) 125/84 (98) 117/69 (85) 121/78 (92) Pulse Ox 96 96 95 96 O2 Delivery Room Air Room Air Room Air Room Air 07/18/17 07/18/17 07/18/17 07/18/17 19:12 20:00 20:00 20:56 Temp 99.7 99.7 Pulse 104 Resp 16 17 22 B/P (MAP) 119/78 (92) Pulse Ox 97 95 97 O2 Delivery Room Air Room Air Room Air Room Air 07/18/17 07/18/17 07/18/17 07/18/17 21:00 22:00 23:00 23:03 Pulse 90 80 77 Resp 14 13 15 B/P (MAP) 112/89 (97) 114/89 (97) 121/74 (90) Pulse Ox 95 93 93 98 O2 Delivery Room Air Room Air Room Air Room Air 07/19/17 07/19/17 07/19/17 07/19/17 00:00 00:00 01:00 02:00 Temp 98.7 98.7 Pulse 77 75 78 Resp 10 10 15 B/P (MAP) 103/63 (76) 98/54 (69) 99/57 (71) Pulse Ox 94 97 96 O2 Delivery Room Air Room Air Room Air Room Air 07/19/17 07/19/17 07/19/17 07/19/17 03:00 03:19 04:00 04:00 Temp 99.7 99.7 Pulse 89 86 Resp 16 25 19 B/P (MAP) 101/57 (72) 102/53 (69) Pulse Ox 95 97 95 O2 Delivery Room Air Room Air Room Air Room Air 07/19/17 07/19/17 07/19/17 07/19/17 04:46 07:00 07:45 08:00 Temp 99.5 99.5 Pulse 78 92 Resp 12 16 24 B/P (MAP) 103/55 (71) 108/67 (81) Pulse Ox 96 96 97 O2 Delivery Room Air Room Air Room Air Room Air 07/19/17 07/19/17 07/19/17 07/19/17 08:00 09:00 09:22 09:30 Temp 100.0 100.0 Pulse 92 Resp 15 16 16 20 B/P (MAP) 117/61 (79) Pulse Ox 96 99 97 98 O2 Delivery Room Air Nasal Cannula Room Air Room Air 07/19/17 07/19/17 07/19/17 07/19/17 09:30 09:45 09:50 10:00 Temp 98.9 98.9 Pulse 88 94 92 Resp 13 16 12 15 B/P (MAP) 119/80 (93) 113/80 (91) 122/82 (95) Pulse Ox 98 97 96 98 O2 Delivery Room Air Room Air Room Air Room Air O2 Flow Rate 07/19/17 07/19/17 07/19/17 07/19/17 10:15 10:45 11:00 11:30 Pulse 84 82 84 92 Resp 18 19 23 20 B/P (MAP) 121/81 (94) 135/79 (97) 119/71 (87) 122/70 (87) Pulse Ox 95 96 97 97 O2 Delivery Room Air Room Air Room Air Room Air 07/19/17 07/19/17 07/19/17 07/19/17 11:54 12:00 12:00 12:30 Temp 98.9 98.9 Pulse 84 Resp 20 14 19 B/P (MAP) 117/75 (89) Pulse Ox 96 96 98 O2 Delivery Room Air Room Air Room Air Room Air 07/19/17 07/19/17 07/19/17 07/19/17 13:00 13:59 14:00 15:00 Pulse 82 94 Resp 14 22 16 14 B/P (MAP) 137/74 (95) 123/75 (91) Pulse Ox 98 98 97 97 O2 Delivery Room Air Room Air Room Air Room Air 07/19/17 15:00 Pulse 82 Resp 14 B/P (MAP) 122/70 (87) Pulse Ox 97 O2 Delivery Room Air Intake and Output 07/19/17 07/19/17 07/20/17 15:00 23:00 07:00 Intake Total 600 ml Output Total 1350 ml Balance -750 ml HUBERT POLLARD MD Jul 19, 2017 16:50
[2017-07-19 17:29] LABS: INR 1.4 (0.8-1.1)
[2017-07-19 17:35] LABS: CALCIUM 8.8 mg/dL (8.5-10.1); CREATININE 0.8 mg/dL (0.7-1.3); GFR 113.5
[2017-07-19] MEDS: TEMAZEPAM 15 MG CAPSULE PO PRN (20:43)
[2017-07-20] VITALS (21 sets, daily range): BP systolic 94–138; BP diastolic 47–94
[2017-07-20 00:22] LABS: CALCIUM 8.7 mg/dL (8.5-10.1); CREATININE 0.7 mg/dL (0.7-1.3); GFR 132.4; POTASSIUM 3.9 mmol/L (3.5-5.1)
[2017-07-20 00:24] LABS: INR 1.3 (0.8-1.1); PROTHROMBIN TIME PATIENT 15.7 SEC (11.7-14.0)
[2017-07-20] MEDS: HYDROcodone/APAP 5/325MG 1 TAB TABLET PO PRN ×4 (04:32→21:28)
[2017-07-20] MEDS: ALTEPLASE IV SCH ×3 (04:33→11:45)
[2017-07-20] MEDS: NORMAL SALINE IV SCH ×3 (04:33→11:45)
[2017-07-20] MEDS: HEPARIN 25,000UTS/500ML PREMIX 500 ML IV PRN ×2 (04:53→08:09)
[2017-07-20 06:45] LABS: CALCIUM 8.4 mg/dL (8.5-10.1); CREATININE 0.8 mg/dL (0.7-1.3); GFR 113.5; POTASSIUM 4.1 mmol/L (3.5-5.1)
[2017-07-20 06:49] LABS: INR 1.4 (0.8-1.1); PROTHROMBIN TIME PATIENT 15.9 SEC (11.7-14.0)
[2017-07-20] MEDS ORDERED: IODIXANOL 320 MG/ML 100 ML VIAL. IART ONE (08:45)
[2017-07-20] MEDS ORDERED: MIDAZOLAM HCL/PF 5 MG/5 ML VIAL. IV ONE (08:45)
[2017-07-20] MEDS ORDERED: LIDOCAINE 1% / SOD BICARB 8.4% 20 ML VIAL. IJ ONE (08:45)
[2017-07-20] MEDS ORDERED: fentaNYL PF VIAL 250 MCG/5 ML VIAL IV ONE (08:45)
[2017-07-20] MEDS ORDERED: CONTRAST GIVEN MC PRN (08:45)
--- NOTE | 2017-07-20 09:46 | PDOC ---
PROGRESS NOTES Chief Complaint Chief Complaint LE DVT ASSESSMENT AND PLAN 1. EXTENSIVE L LE DVT up to the bifurcation of inferior vena cava: s/p thrombectomy/ thrombolysis 07/17 -. re brooke later today in VIR no evidence of underlying malignancy. Hypercoag W/U ongoing. plan for OAC (xarelto) at D/C for 6 months; F/U with Dr Horacio Crouch at that time for decisions re further anticoag needs. 2. Anticoag rx: monitor coags and H/H closely. replete with cryo x10 for Fibr <100, notify MD for Hgb drop of <1g/dl 3. LE edema: 2/2 DVT, improving 4. Pain: controlled on current regimen History of Present Illness History of Present Illness no abd or leg pain. swelling minimal Vitals Vitals Vital Signs Date Time Temp Pulse Resp B/P (MAP) Pulse Ox O2 Delivery O2 Flow Rate FiO2 07/20/17 08:00 Room Air 07/20/17 08:00 98.1 72 14 119/69 (86) 98 98.1 07/19/17 19:40 2.0 Physical Exam General: Alert, Oriented X3, Cooperative, No acute distress Heart: Regular rate Lungs: Clear Abdomen: Normal bowel sounds, Soft, No tenderness Extremities: No edema Skin: No rashes Labs LABS Laboratory Tests Test 07/19/17 12:00 07/19/17 14:30 07/19/17 17:00 07/20/17 00:01 Hemoglobin 13.9 g/dL (13.0-17.5) 13.8 g/dL (13.0-17.5) 13.4 g/dL (13.0-17.5) Prothrombin Time 16.9 SEC (11.7-14.0) 16.0 SEC (11.7-14.0) 15.7 SEC (11.7-14.0) Prothromb Time International Ratio 1.5 (0.8-1.1) 1.4 (0.8-1.1) 1.3 (0.8-1.1) Activated Partial Thromboplast Time 51 SEC (24-38) 44 SEC (24-38) 41 SEC (24-38) Fibrinogen 116 mg/dL (200-440) 167 mg/dL (200-440) 157 mg/dL (200-440) Sodium Level 135 mmol/L (136-145) 136 mmol/L (136-145) 137 mmol/L (136-145) Potassium Level 4.0 mmol/L (3.5-5.1) 4.0 mmol/L (3.5-5.1) 3.9 mmol/L (3.5-5.1) Chloride Level 96 mmol/L (98-107) 98 mmol/L (98-107) 99 mmol/L (98-107) Carbon Dioxide Level 27 mmol/L (21-32) 29 mmol/L (21-32) 28 mmol/L (21-32) Anion Gap 12 (6-14) 9 (6-14) 10 (6-14) Blood Urea Nitrogen 8 mg/dL (8-26) 8 mg/dL (8-26) 9 mg/dL (8-26) Creatinine 0.6 mg/dL (0.7-1.3) 0.8 mg/dL (0.7-1.3) 0.7 mg/dL (0.7-1.3) Estimated GFR (Cockcroft-Gault) 158.2 113.5 132.4 Glucose Level 88 mg/dL (70-99) 116 mg/dL (70-99) 91 mg/dL (70-99) Calcium Level 8.8 mg/dL (8.5-10.1) 8.8 mg/dL (8.5-10.1) 8.7 mg/dL (8.5-10.1) Test 07/20/17 05:55 Hemoglobin 13.6 g/dL (13.0-17.5) Prothrombin Time 15.9 SEC (11.7-14.0) Prothromb Time International Ratio 1.4 (0.8-1.1) Activated Partial Thromboplast Time 40 SEC (24-38) Fibrinogen 190 mg/dL (200-440) Sodium Level 138 mmol/L (136-145) Potassium Level 4.1 mmol/L (3.5-5.1) Chloride Level 99 mmol/L (98-107) Carbon Dioxide Level 28 mmol/L (21-32) Anion Gap 11 (6-14) Blood Urea Nitrogen 9 mg/dL (8-26) Creatinine 0.8 mg/dL (0.7-1.3) Estimated GFR (Cockcroft-Gault) 113.5 Glucose Level 89 mg/dL (70-99) Calcium Level 8.4 mg/dL (8.5-10.1) GUNJAN BOBBY MD Jul 20, 2017 09:46
[2017-07-20] MEDS ORDERED: ALTEPLASE 2MG VIAL 10 MG in IV NORMAL SALINE 100ML 100 ML IV ONE (10:00)
[2017-07-20] MEDS ORDERED: fentaNYL PF VIAL 100 MCG/2 ML VIAL ONE (10:47)
[2017-07-20] MEDS ORDERED: fentaNYL PF VIAL 100 MCG/2 ML VIAL IV ONE (11:00)
--- NOTE | 2017-07-20 11:17 | PDOC ---
BRIEF OPERATIVE NOTE Pre-Op Diagnosis LLE DVT, May Thurner Syndrome Post-Op Diagnosis same Procedure Performed Thrombolysis, angioplasty and stenting of the left common and external iliac veins, angioplasty of the left common femoral vein Surgeon Osbaldo Anesthesia Type: Conscious Sedation Findings Persistent occlusive thrombus in the left iliac veins s/p 48 infusion thrombolysis. Improved but persistent s/p large caliber rheolytic tpa infusion and thrombectomy. Focal dense thrombotic cap at the iliac vein confluence was refractory to maceration, and thrombectomy. S/P 16f Wallstent in iliac veins there is baptism of brisk venous outflow with small area of persistent adherent thrombus at the common femoral vein which was again improved s/p 8mm balloon angioplasty. Complications No immediate Additional Remarks This gentleman is at high risk of rethrombosis and needs prompt systemic anticoagulation with Xarelto to begin 1 hour after hemostasis at the procedure access site. He also requires 20-30mm graduated fitted thigh high compression stocking to be worn while awake for 2 years - SCD's and/or ambulation until stockings are available. Antiocoagulation for 3 months. Reevaluate with doppler US in 6 - 12 weeks. Encourage activity. MICHOACANO MUNOZ MD Jul 20, 2017 11:17
[2017-07-20 11:29] LABS: HEMATOCRIT 38.6 % (39.0-53.0); HEMOGLOBIN 13.7 g/dL (13.0-17.5); RED BLOOD COUNT 4.08 x10^6/uL (4.30-5.70); WHITE BLOOD COUNT 4.8 x10^3/uL (4.0-11.0)
[2017-07-20] MEDS: RIVAROXABAN 15 MG TABLET. PO SCH ×2 (11:57→17:03)
--- NOTE | 2017-07-20 14:12 | RAD ---
Procedure: Left lower extremity venography through existing catheter, rheolytic thrombolysis, mechanical thrombectomy, left common and external iliac vein stent placement, left common femoral vein angioplasty Clinical Indication: 32-year-old male with extensive left lower extremity DVT Sedation: Conscious sedation was administered for 119 minutes. The patient was monitored by a qualified independent observer throughout the time of sedation. Please refer to the medical record for exact doses of medications utilized to achieve moderate sedation. Antibiotics: none Exposure: Kerma-Area Product: [id number] Sterility: All elements of maximal sterile barrier technique including the use of a cap, mask, sterile gown, sterile gloves, large sterile sheet, appropriate hand hygiene, and 2% chlorhexidine for cutaneous antisepsis (or acceptable alternative antiseptic per current guidelines) were followed for this procedure. Consent: The procedure was explained in its entirety to the patient or the patients designated sales representative cash registers by a member of the treatment team, including a discussion of the risks, benefits and commonly accepted alternatives to the procedure, as well as the expected consequences of no therapy whatsoever. Discussion of the risks included, but was not limited to, those that are most frequent and those that are rare but possibly severe or life-threatening, as well as the possibility of unforeseen complications. Technique and Findings: Following informed consent, the patient was prepped and draped in usual sterile fashion. 1% lidocaine was used to achieve local anesthesia around the left popliteal fossa. The infusion wire within the infusion catheter was removed and contrast venography was performed demonstrated persistent thrombosis of the left common and external iliac veins. The infusion catheter was then exchanged over wire for large diameter rheolytic catheter, and power pulse spray infusion of TPA was performed throughout the iliac veins. Following a 20 minute wall time, mechanical thrombectomy throughout the iliac veins was performed. Repeat venogram demonstrated mild improvement with persistent occlusive thrombus. A 7 mm x 80 mm angioplasty balloon was then used to angioplasty the common femoral vein, the common iliac vein, and the external iliac vein. This resulted in mild improvement as well. Follow-up venogram reveals a dense thrombotic cap in the common iliac vein, with a moderate amount of residual nonocclusive thrombus in the external iliac and common femoral veins. A 16 mm x 90 mm Wallstent was then deployed across the common iliac and external iliac veins, and this was postdilated using a 14 mm x 40 mm angioplasty balloon to full profile. Completion venogram demonstrated denominational of brisk venous flow throughout the treated segments. There is a moderate focal persistent stenosis within the left common femoral vein, due to a small amount of wall apparent thrombus. This was then treated with angioplasty using 8 mm x 40 mm angioplasty balloon, resulting in some additional improvement. Venous flow through the area remains brisk. The popliteal sheath was then removed and hemostasis was achieved with manual compression. Complications: No immediate Impression: 1. Persistent occlusive iliac vein thrombus status post 48 hours of infusion thrombolysis with TPA. 2. Moderate improvement status post rheolytic TPA thrombolysis and large caliber suction thrombectomy. 3. Additional improvement following iliac vein angioplasty. 4. Jain of patency and brisk venous flow through the femoral and iliac veins following common iliac and external iliac vein stenting using a 16 mm x 90 mm Wallstent. 5. Small focal residual common femoral vein stenosis likely due to wall adherent thrombus, improved but not entirely resolved status post 8 mm angioplasty. Recommendations for this gentleman include aggressive anticoagulation, and graduated fitted thigh-high compression stocking at 20 to 30 mmHg compression to be worn while awake. Frequent ambulation is also encouraged.
[2017-07-20] MEDS: MORPHINE SULFATE 4 MG/ML DISP.SYRIN. IV PRN (14:17)
[2017-07-20] MEDS: TEMAZEPAM 15 MG CAPSULE PO PRN (21:28)
[2017-07-21] VITALS (14 sets, daily range): BP systolic 95–120; BP diastolic 45–69
[2017-07-21] MEDS: HYDROcodone/APAP 5/325MG 1 TAB TABLET PO PRN ×2 (04:24→14:06)
[2017-07-21] MEDS: RIVAROXABAN 15 MG TABLET. PO SCH (07:46)
--- NOTE | 2017-07-21 09:08 | PDOC ---
PROGRESS NOTES Subjective Subjective c/c - f/u of Deep vein thrombosis of the left lower extremity ROS - pedal edema better Objective Objective Vital Signs Date Time Temp Pulse Resp B/P (MAP) Pulse Ox O2 Delivery O2 Flow Rate FiO2 07/21/17 06:00 69 14 112/56 (74) Room Air 07/21/17 04:00 98 07/21/17 00:03 98.5 98.5 07/20/17 12:17 2.0 Physical Exam Heart: Normal S1, Normal S2 General: Alert, Oriented X3 Lungs: Clear to auscultation Neuro: Normal speech Psych/Mental Status: Mental status NL Assessment Assessment IMPRESSION AND PLAN: 1. Deep vein thrombosis of the left lower extremity, unprovoked. Deep vein thrombosis extending up to the bifurcation of inferior vena cava. I appreciate vascular surgery consultation. I agree with the recommendations for thrombolysis started 07/18/17. Appreciate IR management. I agree with Dr. Horacio Crouch' recommendation to change to an oral anticoagulant prior to discharge. The patient will continue anticoagulation for 6 months and follow up with Dr. Horacio Crouch after 6 months for further recommendations regarding anticoagulation. He has an appointment on 01/06/18. He has been started on xarelto. I d/w RN 2. Edema in the left lower extremity secondary to deep vein thrombosis. Improving. Comment Review of Relevant I have reviewed the following items pauline (where applicable) has been applied. Labs Laboratory Tests Test 07/19/17 12:00 07/19/17 14:30 07/19/17 17:00 07/20/17 00:01 Hemoglobin 13.9 g/dL (13.0-17.5) 13.8 g/dL (13.0-17.5) 13.4 g/dL (13.0-17.5) Prothrombin Time 16.9 SEC (11.7-14.0) 16.0 SEC (11.7-14.0) 15.7 SEC (11.7-14.0) Prothromb Time International Ratio 1.5 (0.8-1.1) 1.4 (0.8-1.1) 1.3 (0.8-1.1) Activated Partial Thromboplast Time 51 SEC (24-38) 44 SEC (24-38) 41 SEC (24-38) Fibrinogen 116 mg/dL (200-440) 167 mg/dL (200-440) 157 mg/dL (200-440) Sodium Level 135 mmol/L (136-145) 136 mmol/L (136-145) 137 mmol/L (136-145) Potassium Level 4.0 mmol/L (3.5-5.1) 4.0 mmol/L (3.5-5.1) 3.9 mmol/L (3.5-5.1) Chloride Level 96 mmol/L (98-107) 98 mmol/L (98-107) 99 mmol/L (98-107) Carbon Dioxide Level 27 mmol/L (21-32) 29 mmol/L (21-32) 28 mmol/L (21-32) Anion Gap 12 (6-14) 9 (6-14) 10 (6-14) Blood Urea Nitrogen 8 mg/dL (8-26) 8 mg/dL (8-26) 9 mg/dL (8-26) Creatinine 0.6 mg/dL (0.7-1.3) 0.8 mg/dL (0.7-1.3) 0.7 mg/dL (0.7-1.3) Estimated GFR (Cockcroft-Gault) 158.2 113.5 132.4 Glucose Level 88 mg/dL (70-99) 116 mg/dL (70-99) 91 mg/dL (70-99) Calcium Level 8.8 mg/dL (8.5-10.1) 8.8 mg/dL (8.5-10.1) 8.7 mg/dL (8.5-10.1) Test 07/20/17 05:55 White Blood Count 4.8 x10^3/uL (4.0-11.0) Red Blood Count 4.08 x10^6/uL (4.30-5.70) Hemoglobin 13.6 g/dL (13.0-17.5) Hematocrit 38.6 % (39.0-53.0) Mean Corpuscular Volume 95 fL (79-100) Mean Corpuscular Hemoglobin 34 pg (25-35) Mean Corpuscular Hemoglobin Concent 36 g/dL (31-37) Red Cell Distribution Width 13.0 % (11.5-14.5) Platelet Count 224 x10^3/uL (140-400) Prothrombin Time 15.9 SEC (11.7-14.0) Prothromb Time International Ratio 1.4 (0.8-1.1) Activated Partial Thromboplast Time 40 SEC (24-38) Fibrinogen 190 mg/dL (200-440) Sodium Level 138 mmol/L (136-145) Potassium Level 4.1 mmol/L (3.5-5.1) Chloride Level 99 mmol/L (98-107) Carbon Dioxide Level 28 mmol/L (21-32) Anion Gap 11 (6-14) Blood Urea Nitrogen 9 mg/dL (8-26) Creatinine 0.8 mg/dL (0.7-1.3) Estimated GFR (Cockcroft-Gault) 113.5 Glucose Level 89 mg/dL (70-99) Calcium Level 8.4 mg/dL (8.5-10.1) Medications Current Medications Morphine Sulfate 2 mg PRN Q2HR PRN IV PAIN Last administered on 07/20/17 14:17 ; Start 07/14/17 at 21:15 Acetaminophen/ Hydrocodone Bitart (Lortab 5/325) 1 tab PRN Q4HRS PRN PO MILD PAIN Last administered on 07/18/17 10:39; Start 07/14/17 at 21:00 Acetaminophen (Tylenol) 650 mg PRN Q6HRS PRN PO Headaches, Temp > 101.5F Last administered on 07/19/17 21:23; Start 07/14/17 at 21:00 Heparin Sodium/ Dextrose 500 ml @ 0 mls/hr CONT PRN IV SEE I/O RECORD Last administered on 07/17/17 21:20; Start 07/14/17 at 21:00; Stop 07/18/17 at 10:02 ; Status DC Heparin Sodium (Porcine) (Heparin Sodium) 2,700 unit PRN Q6HRS PRN IV FOR UFH LEVEL LESS THAN 0.2; Start 07/14/17 at 21:00; Stop 07/18/17 at 10:02; Status DC Heparin Sodium (Porcine) (Heparin Sodium) 1,350 unit PRN Q6HRS PRN IV FOR UFH LEVEL 0.2 - 0.29 Last administered on 07/16/17 21:57; Start 07/14/17 at 21:00; Stop 07/18/17 at 10:03; Status DC Temazepam (Restoril) 15 mg PRN QHS PRN PO INSOMNIA Last administered on 21:28; Start 07/14/17 at 21:00 Ondansetron HCl (Zofran) 4 mg PRN Q6HRS PRN IV NAUSEA/VOMITING; Start 07/15/17 at 08:30; Stop 07/15/17 at 13:49; Status DC Ondansetron HCl (Zofran Odt) 4 mg PRN Q6HRS PRN PO NAUSEA/VOMITING; Start 07/15 at 08:30 Ondansetron HCl (Zofran) 4 mg PRN Q6HRS PRN IV NAUSEA/VOMITING; Start 07/15/17 at 14:00 Info (Anti-Coagulation Monitoring By Pharmacy) 1 each PRN DAILY PRN MC SEE COMMENTS Last administered on 07/19/17 15:01; Start 07/15/17 at 14:00; Stop at 12:18; Status DC Lidocaine/Sodium Bicarbonate (Buffered Lidocaine 1%) 20 ml STK-MED ONCE IJ ; Start 07/18/17 at 08:17; Stop 07/18/17 at 08:18; Status DC Heparin Sodium/ Sodium Chloride 500 ml @ As Directed STK-MED ONCE .ROUTE ; Start 07/18/17 at 08:17; Stop 07/18/17 at 08:18; Status DC Iohexol (Omnipaque 300 Mg/ml) 100 ml STK-MED ONCE .ROUTE ; Start 07/18/17 at 08: 17; Stop 07/18/17 at 08:18; Status DC Alteplase, Recombinant 10 mg/ Sodium Chloride 100 ml @ 0 mls/hr 1X ONCE IV Last administered on 07/18/17 10:15; Start 07/18/17 at 08:45; Stop 07/18/17 at 08:46; Status DC Heparin Sodium/ Sodium Chloride 500 ml @ As Directed STK-MED ONCE .ROUTE ; Start 07/18/17 at 08:42; Stop 07/18/17 at 08:43; Status DC Midazolam HCl (Versed) 5 mg STK-MED ONCE .ROUTE ; Start 07/18/17 at 09:11; Stop 07/18/17 at 09:12; Status DC Fentanyl Citrate (Fentanyl 5ml Vial) 250 mcg STK-MED ONCE .ROUTE ; Start at 09:11; Stop 07/18/17 at 09:12; Status DC Heparin Sodium/ Sodium Chloride 1,000 unit 1X ONCE IART Last administered on 09:30; Start 07/18/17 at 09:30; Stop 07/18/17 at 09:31; Status DC Lidocaine/Sodium Bicarbonate (Buffered Lidocaine 1%) 20 ml 1X ONCE IJ Last administered on 07/18/17 09:30; Start 07/18/17 at 09:30; Stop 07/18/17 at 09:31 ; Status DC Midazolam HCl (Versed) 5 mg 1X ONCE IV Last administered on 07/18/17 09:38; Start 07/18/17 at 09:30; Stop 07/18/17 at 09:31; Status DC Fentanyl Citrate (Fentanyl 5ml Vial) 250 mcg 1X ONCE IV Last administered on 09:38; Start 07/18/17 at 09:30; Stop 07/18/17 at 09:31; Status DC Iohexol (Omnipaque 300 Mg/ml) 100 ml 1X ONCE IART Last administered on 09:30; Start 07/18/17 at 09:30; Stop 07/18/17 at 09:31; Status DC Info (Do NOT chart on this entry -- for MONITORING) 1 each PRN DAILY PRN MC SEE COMMENTS; Start 07/18/17 at 09:30; Stop 07/20/17 at 09:29; Status DC Heparin Sodium/ Dextrose 500 ml @ 0 mls/hr CONT PRN IV SEE I/O RECORD Last administered on 07/20/17 08:09; Start 07/18/17 at 10:00; Stop 07/20/17 at 19:08 ; Status DC Alteplase, Recombinant 5 mg/ Sodium Chloride 50 ml @ 5 mls/hr Q10H IV Last administered on 07/18/17 23:58; Start 07/18/17 at 10:30; Stop 07/19/17 at 11:42 ; Status DC Acetaminophen/ Hydrocodone Bitart (Lortab 5/325) 2 tab PRN Q4HRS PRN PO PAIN MILD TO MOD Last administered on 8/31/17at 04:24; Start 07/18/17 at 11:15 Iohexol (Omnipaque 300 Mg/ml) 100 ml STK-MED ONCE .ROUTE ; Start 07/19/17 at 07: 46; Stop 07/19/17 at 08:22; Status DC Lidocaine/Sodium Bicarbonate (Buffered Lidocaine 1%) 20 ml STK-MED ONCE IJ ; Start 07/19/17 at 07:47; Stop 07/19/17 at 08:22; Status DC Heparin Sodium/ Sodium Chloride 500 ml @ As Directed STK-MED ONCE .ROUTE ; Start 07/19/17 at 07:47; Stop 07/19/17 at 08:22; Status DC Fentanyl Citrate (Fentanyl 2ml Vial) 100 mcg STK-MED ONCE .ROUTE ; Start at 08:33; Stop 07/19/17 at 08:34; Status DC Midazolam HCl (Versed) 5 mg STK-MED ONCE .ROUTE ; Start 07/19/17 at 08:34; Stop 07/19/17 at 08:35; Status DC Heparin Sodium/ Sodium Chloride 1,000 unit 1X ONCE IART Last administered on 09:00; Start 07/19/17 at 09:00; Stop 07/19/17 at 09:01; Status DC Lidocaine/Sodium Bicarbonate (Buffered Lidocaine 1%) 20 ml 1X ONCE IJ Last administered on 07/19/17 09:00; Start 07/19/17 at 09:00; Stop 07/19/17 at 09:01 ; Status DC Midazolam HCl (Versed) 5 mg 1X ONCE IV Last administered on 07/19/17 09:00; Start 07/19/17 at 09:00; Stop 07/19/17 at 09:01; Status DC Fentanyl Citrate (Fentanyl 2ml Vial) 100 mcg 1X ONCE IV Last administered on 09:00; Start 07/19/17 at 09:00; Stop 07/19/17 at 09:01; Status DC Iohexol (Omnipaque 300 Mg/ml) 100 ml 1X ONCE IART Last administered on 09:00; Start 07/19/17 at 09:00; Stop 07/19/17 at 09:01; Status DC Info (Do NOT chart on this entry -- for MONITORING) 1 each PRN DAILY PRN MC SEE COMMENTS; Start 07/19/17 at 09:00; Stop 07/21/17 at 07:46; Status DC Alteplase, Recombinant 2.5 mg/Sodium Chloride 50 ml @ 10 mls/hr Q5H IV Last administered on 07/19/17 20:01; Start 07/19/17 at 12:00; Stop 07/19/17 at 20:27 ; Status DC Alteplase, Recombinant 5 mg/ Sodium Chloride 50 ml @ 10 mls/hr Q5H IV Last administered on 07/20/17 08:07; Start 07/19/17 at 20:45; Stop 07/20/17 at 13:58 ; Status DC Heparin Sodium/ Sodium Chloride 1,000 unit 1X ONCE IART Last administered on 11:10; Start 07/20/17 at 08:45; Stop 07/20/17 at 08:46; Status DC Lidocaine/Sodium Bicarbonate (Buffered Lidocaine 1%) 20 ml 1X ONCE IJ Last administered on 07/20/17 11:09; Start 07/20/17 at 08:45; Stop 07/20/17 at 08:46 ; Status DC Midazolam HCl (Versed) 5 mg 1X ONCE IV Last administered on 07/20/17 11:12; Start 07/20/17 at 08:45; Stop 07/20/17 at 08:46; Status DC Fentanyl Citrate (Fentanyl 5ml Vial) 150 mcg 1X ONCE IV Last administered on 11:11; Start 07/20/17 at 08:45; Stop 07/20/17 at 08:46; Status DC Iodixanol (Visipaque 320) 100 ml 1X ONCE IART Last administered on 07/20/17 11:10; Start 07/20/17 at 08:45; Stop 07/20/17 at 08:46; Status DC Info (Do NOT chart on this entry -- for MONITORING) 1 each PRN DAILY PRN MC SEE COMMENTS; Start 07/20/17 at 08:45; Stop 07/22/17 at 08:44 Alteplase, Recombinant 10 mg/ Sodium Chloride 100 ml @ 10 mls/hr 1X ONCE IV Last administered on 07/20/17 11:13; Start 07/20/17 at 10:00; Stop 07/20/17 at 12:18; Status DC Fentanyl Citrate (Fentanyl 2ml Vial) 100 mcg STK-MED ONCE .ROUTE ; Start at 10:47; Stop 07/20/17 at 10:48; Status DC Heparin Sodium/ Sodium Chloride 1,000 unit 1X ONCE IART Last administered on 11:10; Start 07/20/17 at 11:00; Stop 07/20/17 at 11:01; Status DC Fentanyl Citrate (Fentanyl 2ml Vial) 100 mcg 1X ONCE IV Last administered on 11:12; Start 07/20/17 at 11:00; Stop 07/20/17 at 11:01; Status DC Rivaroxaban (Xarelto) 15 mg BIDWMEALS PO Last administered on 07/21/17 07:46; Start 07/20/17 at 12:00 Active Scripts Active Reported No Known Medications Prior To Admisstion (Info) Each 1 Each Vitals/I & O Vital Sign - Last 24 Hours 07/20/17 07/20/17 07/20/17 07/20/17 11:11 11:12 11:23 11:30 Pulse 68 68 Resp 12 16 15 20 B/P (MAP) 138/84 (102) Pulse Ox 100 99 98 95 O2 Delivery Nasal Cannula Room Air Room Air Room Air O2 Flow Rate 2.0 07/20/17 07/20/17 07/20/17 07/20/17 11:58 12:00 12:00 12:17 Temp 98.8 98.8 Pulse 68 Resp 15 20 B/P (MAP) 138/94 (109) Pulse Ox 100 99 100 O2 Delivery Room Air Room Air Room Air O2 Flow Rate 2.0 07/20/17 07/20/17 07/20/17 07/20/17 12:17 13:00 14:00 14:17 Pulse 92 92 Resp 19 18 B/P (MAP) 103/65 (78) Pulse Ox 100 98 98 100 O2 Delivery Room Air Room Air Room Air Room Air O2 Flow Rate 2.0 07/20/17 07/20/17 07/20/17 07/20/17 15:00 15:06 16:00 16:00 Temp 98.8 98.8 Pulse 84 92 Resp 13 16 B/P (MAP) 106/62 (77) 103/54 (70) Pulse Ox 98 100 98 O2 Delivery Room Air Room Air Room Air Room Air 07/20/17 07/20/17 07/20/17 07/20/17 17:00 17:04 18:00 18:27 Pulse 101 103 Resp 18 13 18 B/P (MAP) 94/59 (71) 109/61 (77) Pulse Ox 98 97 96 96 O2 Delivery Room Air Room Air Room Air 07/20/17 07/20/17 07/20/17 07/20/17 19:00 20:00 20:00 21:00 Temp 98.4 98.4 98.4 98.4 Pulse 104 96 96 Resp 18 18 18 B/P (MAP) 109/66 (80) 110/64 (79) 98/63 (75) Pulse Ox 98 98 98 O2 Delivery Room Air Room Air Room Air Room Air 07/20/17 07/20/17 07/20/17 07/21/17 21:28 22:00 23:00 00:03 Temp 98.5 98.5 Pulse 88 78 76 Resp 18 18 18 18 B/P (MAP) 96/56 (69) 100/47 (64) 100/47 (64) Pulse Ox 98 98 98 O2 Delivery Room Air Room Air Room Air Room Air 07/21/17 07/21/17 07/21/17 07/21/17 00:10 01:00 02:00 03:07 Pulse 76 78 73 Resp 18 14 14 B/P (MAP) 98/46 (63) 95/50 (65) 109/49 (69) Pulse Ox 98 97 98 O2 Delivery Room Air Room Air Room Air Room Air 07/21/17 07/21/17 07/21/17 07/21/17 04:00 04:00 04:24 05:00 Pulse 77 71 Resp 14 14 14 B/P (MAP) 98/50 (66) 97/45 (62) Pulse Ox 98 O2 Delivery Room Air Room Air Room Air Room Air 07/21/17 07/21/17 05:25 06:00 Pulse 69 Resp 14 14 B/P (MAP) 112/56 (74) O2 Delivery Room Air Room Air HUBERT POLLARD MD Jul 21, 2017 09:08
--- NOTE | 2017-07-21 09:49 | PDOC ---
PROGRESS NOTES Chief Complaint Chief Complaint LE DVT ASSESSMENT AND PLAN 1. EXTENSIVE L LE DVT up to the bifurcation of inferior vena cava: s/p thrombectomy/ thrombolysis 07/17 -. re brooke later today in VIR no evidence of underlying malignancy. Hypercoag W/U ongoing. plan for OAC at D/C for 6 months; F/U with Dr Horacio Crouch at that time for decisions re further anticoag needs. 2. Anticoag rx: off IV thrombolytis/heparin, started on Xarelto 3. LE edema: 2/2 DVT, improving 4. Pain: controlled on current regimen History of Present Illness History of Present Illness feels ok. happy to go home Vitals Vitals Vital Signs Date Time Temp Pulse Resp B/P (MAP) Pulse Ox O2 Delivery O2 Flow Rate FiO2 07/21/17 06:00 69 14 112/56 (74) Room Air 07/21/17 04:00 98 07/21/17 00:03 98.5 98.5 07/20/17 12:17 2.0 Physical Exam General: Alert, Oriented X3 Heart: Regular rate Lungs: Clear Abdomen: Normal bowel sounds, Soft, No tenderness Extremities: No edema Skin: No rashes GUNJAN BOBBY MD Jul 21, 2017 09:49
[2017-07-21] MEDS ORDERED: APIX5TAB PO (11:19)
[2017-07-21] MEDS ORDERED: OXYC5TAB PO (14:13)
--- NOTE | 2017-07-21 23:10 | DS ---
DATE OF DISCHARGE: 07/21/2017 CHIEF COMPLAINT: Extensive left lower extremity DVT. HOSPITAL COURSE: The patient is a 32-year-old gentleman without significant past medical history who presented to the Emergency Room with leg swelling and pain. He was diagnosed with a left lower extremity DVT, which unfortunately extended past the confluence of the iliac veins. VIR and Vascular Surgery were therefore involved and the patient underwent thrombolysis as well as thrombectomy by Dr. Roblero from vascular Interventional Radiology on 07/17/2017 and 07/18/2017. In his workup, no evidence of underlying malignancy was found and hypercoagulable workup was obtained, but not completely available at time of discharge. He was switched to an oral antithrombin inhibitor (Eliquis) and followup with Vascular Surgery was arranged. PHYSICAL EXAMINATION: VITAL SIGNS: Show blood pressure of 112/56, heart rate of 69, respiratory rate of 14. He is afebrile. GENERAL: This is a well-nourished 32-year-old gentleman, alert and oriented, no acute distress. LUNGS: Clear. HEART: Regular rate and rhythm. ABDOMEN: Has positive bowel sounds, soft, nontender. EXTREMITIES: Show trace edema in the left thigh. DISCHARGE DIAGNOSIS: Extensive deep venous thrombosis. DISCHARGE DISPOSITION: To home. DISCHARGE MEDICATIONS: Please see MAR. DISCHARGE INSTRUCTIONS: The patient will seek PCP THERESE. He will follow up with Dr. Horacio Crouch from Vascular Surgery as previously arranged. GUNJAN BOBBY MD DR: MICHAEL/nts JOB#: [id number] / [id number] HARPREET
== END 2017-07-21 14:30 | disposition home or self-care (01) | DRG 271 ==
LOC: 2 SOUTH 18:50 → 1 WEST ICU 07-18 10:12
PROVIDERS: ADMIT Internal Medicine; ATTEND Internal Medicine
PROC: 06CD3ZZ Extirpation of Matter from Left Common Iliac Vein, Percutaneous Approach (ICD-10-PCS; principal; 2017-07-18)
PROC: 3E03317 Introduction of Other Thrombolytic into Peripheral Vein, Percutaneous Approach (ICD-10-PCS; 2017-07-18)
PROC: 06CY3ZZ Extirpation of Matter from Lower Vein, Percutaneous Approach (ICD-10-PCS; 2017-07-18)
PROC: 02HV33Z Insertion of Infusion Device into Superior Vena Cava, Percutaneous Approach (ICD-10-PCS; 2017-07-18)
PROC: B5181ZA Fluoroscopy of Superior Vena Cava using Low Osmolar Contrast, Guidance (ICD-10-PCS; 2017-07-18)
PROC: B51C1ZZ Fluoroscopy of Left Lower Extremity Veins using Low Osmolar Contrast (ICD-10-PCS; 2017-07-18)
PROC: 067N3ZZ Dilation of Left Femoral Vein, Percutaneous Approach (ICD-10-PCS; 2017-07-19)
PROC: 067G3ZZ Dilation of Left External Iliac Vein, Percutaneous Approach (ICD-10-PCS; 2017-07-19)
PROC: 067D3ZZ Dilation of Left Common Iliac Vein, Percutaneous Approach (ICD-10-PCS; 2017-07-19)
PROC: B51C1ZZ Fluoroscopy of Left Lower Extremity Veins using Low Osmolar Contrast (ICD-10-PCS; 2017-07-19)
PROC: 067N3ZZ Dilation of Left Femoral Vein, Percutaneous Approach (ICD-10-PCS; 2017-07-20)
PROC: 3E03317 Introduction of Other Thrombolytic into Peripheral Vein, Percutaneous Approach (ICD-10-PCS; 2017-07-20)
DX: I82.412 Acute embolism and thrombosis of left femoral vein (principal); I87.1 Compression of vein; I82.422 Acute embolism and thrombosis of left iliac vein; K76.0 Fatty (change of) liver, not elsewhere classified; I82.492 Acute embolism and thrombosis of other specified deep vein of left lower extremity; R50.9 Fever, unspecified; B34.9 Viral infection, unspecified; Z83.6 Family history of other diseases of the respiratory system; Z79.01 Long term (current) use of anticoagulants
CPT/HCPCS: 36005; 36415; 36569; 37188; 37212; 37213; 37214; 37238; 37248; 37249; 70330; 75820; 76937; 77001; 80048; 81001; 81240; 85007; 85018; 85025; 85027; 85220; 85384; 85520; 85610; 85730; 86850; 86900; 86901; 87641; 99152; 99153; C1725; C1751; C1757; C1758; C1769; C1876; C1892; C1894; J1644; J2250; J2270; J2997; J3010; P9012; Q9967

== ENCOUNTER 2018-01-16 17:35 | Inpatient (IN) | payer BC ==
[2018-01-16 19:53] LABS: BILIRUBIN,URINE NEGATIVE (NEG); CLARITY,URINE CLEAR; COLOR,URINE YELLOW; GLUCOSE,URINE NEGATIVE (NEG); NITRITE,URINE NEGATIVE (NEG); PH,URINE 7.5; PROTEIN,URINE NEGATIVE (NEG-TRACE); UROBILINOGEN,URINE 0.2 mg/dL (0.2 mg/dL)
[2018-01-16 20:03] LABS: BACTERIA,URINE 0 /HPF (0-FEW); RBC,URINE RARE /HPF (0-2); SQUAMOUS EPITHELIAL CELL,UR FEW /LPF; WBC,URINE OCC /HPF (0-4)
[2018-01-16 20:43] LABS: ADD MAN DIFF? NO
[2018-01-16] MEDS: IV NORMAL SALINE 1000ML BAG 1,000 ML IV ×2 (20:47→23:04)
[2018-01-16 20:49] LABS: BASO # 0.1 x10^3/uL (0.0-0.2); BASO % 1 % (0-3); EOS # 0.2 x10^3/uL (0.0-0.7); EOS % 4 % (0-3); HEMATOCRIT 42.7 % (39.0-53.0); HEMOGLOBIN 14.5 g/dL (13.0-17.5); LYMPH # 0.9 x10^3/uL (1.0-4.8); LYMPH % 18 % (24-48); MEAN CORPUSCULAR HEMOGLOBIN 32 pg (25-35); MEAN CORPUSCULAR HGB CONC 34 g/dL (31-37); MEAN CORPUSCULAR VOLUME 95 fL (79-100); MONO # 0.4 x10^3/uL (0.0-1.1); MONO % 9 % (0-9); NEUT # 3.4 x10^3uL (1.8-7.7); NEUT % 67 % (31-73); PLATELET COUNT 311 x10^3/uL (140-400); RED BLOOD COUNT 4.48 x10^6/uL (4.30-5.70); RED CELL DISTRIBUTION WIDTH 13.6 % (11.5-14.5)
[2018-01-16 20:54] LABS: ANION GAP 7 (6-14); BLOOD UREA NITROGEN 11 mg/dL (8-26); BUN/CREATININE RATIO 11 (6-20); CALCIUM 8.9 mg/dL (8.5-10.1); CARBON DIOXIDE 29 mmol/L (21-32); CHLORIDE 102 mmol/L (98-107); GFR 87.7; GLUCOSE 80 mg/dL (70-99); SODIUM 138 mmol/L (136-145)
[2018-01-16 20:55] LABS: INR 1.1 (0.8-1.1); PARTIAL THROMBOPLASTIN TIME 31 SEC (24-38); PROTHROMBIN TIME PATIENT 13.1 SEC (11.7-14.0)
[2018-01-16 21:00] LABS: ALBUMIN 3.8 g/dL (3.4-5.0); ALBUMIN/GLOBULIN RATIO 1.3 (1.0-1.7); ALK PHOS 76 U/L (46-116); ALT (SGPT) 51 U/L (16-63); AST (SGOT) 31 U/L (15-37); TOTAL BILIRUBIN 0.6 mg/dL (0.2-1.0); TOTAL PROTEIN 6.8 g/dL (6.4-8.2)
[2018-01-16] MEDS ORDERED: ACETAMINOPHEN 325 MG TABLET. PO (21:30)
[2018-01-16] MEDS ORDERED: ONDANSETRON PF 4 MG/2 ML VIAL. IV (21:30)
[2018-01-16] MEDS: fentaNYL PF VIAL 100 MCG/2 ML VIAL IV (23:09)
[2018-01-17] MEDS: fentaNYL PF VIAL 100 MCG/2 ML VIAL IV ×3 (01:27→07:39)
[2018-01-17 05:17] LABS: ADD MAN DIFF? NO
[2018-01-17 05:34] LABS: BASO % 1 % (0-3); EOS # 0.3 x10^3/uL (0.0-0.7); EOS % 6 % (0-3); HEMATOCRIT 38.7 % (39.0-53.0); HEMOGLOBIN 13.3 g/dL (13.0-17.5); LYMPH # 1.2 x10^3/uL (1.0-4.8); LYMPH % 27 % (24-48); MEAN CORPUSCULAR HEMOGLOBIN 33 pg (25-35); MEAN CORPUSCULAR HGB CONC 34 g/dL (31-37); MEAN CORPUSCULAR VOLUME 95 fL (79-100); MONO # 0.5 x10^3/uL (0.0-1.1); MONO % 10 % (0-9); NEUT # 2.5 x10^3uL (1.8-7.7); NEUT % 56 % (31-73); PLATELET COUNT 276 x10^3/uL (140-400); RED BLOOD COUNT 4.07 x10^6/uL (4.30-5.70); RED CELL DISTRIBUTION WIDTH 13.7 % (11.5-14.5); WHITE BLOOD COUNT 4.5 x10^3/uL (4.0-11.0)
[2018-01-17 05:47] LABS: ANION GAP 7 (6-14); BLOOD UREA NITROGEN 9 mg/dL (8-26); CALCIUM 8.6 mg/dL (8.5-10.1); CARBON DIOXIDE 29 mmol/L (21-32); CHLORIDE 104 mmol/L (98-107); CREATININE 0.9 mg/dL (0.7-1.3); GFR 99.1; GLUCOSE 88 mg/dL (70-99); POTASSIUM 3.6 mmol/L (3.5-5.1); SODIUM 140 mmol/L (136-145)
[2018-01-17] MEDS: IV NORMAL SALINE 1000ML BAG 1,000 ML IV ×2 (06:17→13:46)
[2018-01-17] MEDS: oxyCODONE/APAP 5/325 1 TAB TABLET PO (09:26)
[2018-01-17] MEDS ORDERED: ONDANSETRON PF 4 MG/2 ML VIAL. IV (11:00)
[2018-01-17] MEDS ORDERED: traMADol 50 MG TABLET PO (11:00)
[2018-01-17] MEDS ORDERED: ACETAMINOPHEN 325 MG TABLET. PO (11:00)
[2018-01-17] MEDS ORDERED: DOCUSATE SODIUM 100 MG CAPSULE. PO (11:00)
[2018-01-17] MEDS ORDERED: hydrALAZINE 20 MG/ML VIAL. IVP (11:00)
[2018-01-17] MEDS: oxyCODONE/APAP 10/325 1 TAB TABLET PO ×3 (12:15→20:34)
[2018-01-17] MEDS: MORPHINE SULFATE 4 MG/ML DISP.SYRIN. IV ×4 (13:46→22:39)
[2018-01-17] MEDS: traZODone 100 MG TABLET. PO (20:33)
[2018-01-18] MEDS: oxyCODONE/APAP 10/325 1 TAB TABLET PO ×3 (03:22→11:43)
[2018-01-18 03:44] LABS: ADD MAN DIFF? NO
[2018-01-18 03:46] LABS: BASO % 1 % (0-3); EOS # 0.3 x10^3/uL (0.0-0.7); EOS % 6 % (0-3); HEMATOCRIT 40.9 % (39.0-53.0); LYMPH # 1.1 x10^3/uL (1.0-4.8); LYMPH % 25 % (24-48); MEAN CORPUSCULAR HEMOGLOBIN 33 pg (25-35); MEAN CORPUSCULAR HGB CONC 34 g/dL (31-37); MEAN CORPUSCULAR VOLUME 95 fL (79-100); MONO # 0.4 x10^3/uL (0.0-1.1); MONO % 10 % (0-9); NEUT # 2.5 x10^3uL (1.8-7.7); NEUT % 58 % (31-73); PLATELET COUNT 277 x10^3/uL (140-400); RED BLOOD COUNT 4.29 x10^6/uL (4.30-5.70); RED CELL DISTRIBUTION WIDTH 13.5 % (11.5-14.5); WHITE BLOOD COUNT 4.3 x10^3/uL (4.0-11.0)
[2018-01-18 03:56] LABS: ANION GAP 5 (6-14); BLOOD UREA NITROGEN 8 mg/dL (8-26); CALCIUM 8.9 mg/dL (8.5-10.1); CARBON DIOXIDE 30 mmol/L (21-32); CHLORIDE 105 mmol/L (98-107); GFR 87.7; GLUCOSE 92 mg/dL (70-99); POTASSIUM 4.2 mmol/L (3.5-5.1); SODIUM 140 mmol/L (136-145)
[2018-01-18] MEDS: FLUoxetine HCL 20 MG CAPSULE PO (09:18)
[2018-01-18] MEDS: MORPHINE SULFATE 4 MG/ML DISP.SYRIN. IV ×3 (09:19→19:49)
[2018-01-18] MEDS ORDERED: IODIXANOL 320 MG/ML 100 ML VIAL. ×2 (12:30→13:30)
[2018-01-18] MEDS ORDERED: LIDOCAINE WITH 8.4% SOD BICARB 3 ML DISP.SYRIN. (12:30)
[2018-01-18] MEDS ORDERED: CONTRAST GIVEN MC (13:15)
[2018-01-18] MEDS ORDERED: fentaNYL PF VIAL 100 MCG/2 ML VIAL (13:46)
[2018-01-18] MEDS ORDERED: MIDAZOLAM HCL/PF 2 MG/2 ML VIAL. (13:46)
[2018-01-18] MEDS ORDERED: HEPARIN for ARTERIAL LINE 0 ML (13:52)
[2018-01-18] MEDS ORDERED: HEPARIN 25,000UTS/500ML PREMIX 500 ML IV (13:59)
[2018-01-18] MEDS: ALTEPLASE 25 MG in IV NORMAL SALINE 250ML 250 ML IV (14:01)
[2018-01-18] MEDS: HEPARIN 25,000UTS/500ML PREMIX 500 ML IV (14:05)
[2018-01-18] MEDS: IODIXANOL 320 MG/ML 100 ML VIAL. IART (14:07)
[2018-01-18] MEDS: LIDOCAINE WITH 8.4% SOD BICARB 3 ML DISP.SYRIN. IJ (14:08)
[2018-01-18] MEDS: fentaNYL PF VIAL 100 MCG/2 ML VIAL IV (14:09)
[2018-01-18] MEDS: MIDAZOLAM HCL/PF 2 MG/2 ML VIAL. IV (14:10)
[2018-01-18] MEDS ORDERED: ONDANSETRON PF 4 MG/2 ML VIAL. IV (14:15)
[2018-01-18 14:46] LABS: HEMATOCRIT 42.4 % (39.0-53.0); HEMOGLOBIN 14.8 g/dL (13.0-17.5); MEAN CORPUSCULAR HEMOGLOBIN 33 pg (25-35); MEAN CORPUSCULAR HGB CONC 35 g/dL (31-37); MEAN CORPUSCULAR VOLUME 95 fL (79-100); PLATELET COUNT 267 x10^3/uL (140-400); RED BLOOD COUNT 4.48 x10^6/uL (4.30-5.70); RED CELL DISTRIBUTION WIDTH 13.5 % (11.5-14.5); WHITE BLOOD COUNT 4.5 x10^3/uL (4.0-11.0)
[2018-01-18 14:57] LABS: FIBRINOGEN 428 mg/dL (200-440)
[2018-01-18 14:57] LABS: PARTIAL THROMBOPLASTIN TIME 30 SEC (24-38)
[2018-01-18 15:03] LABS: ANION GAP 5 (6-14); BLOOD UREA NITROGEN 7 mg/dL (8-26); CALCIUM 8.7 mg/dL (8.5-10.1); CARBON DIOXIDE 32 mmol/L (21-32); CHLORIDE 103 mmol/L (98-107); CREATININE 0.9 mg/dL (0.7-1.3); GFR 99.1; GLUCOSE 82 mg/dL (70-99); POTASSIUM 3.6 mmol/L (3.5-5.1); SODIUM 140 mmol/L (136-145)
[2018-01-18] MEDS: FAMOTIDINE 20 MG/2 ML VIAL IVP ×2 (17:33→20:48)
[2018-01-18] MEDS: oxyCODONE/APAP 5/325 1 TAB TABLET PO ×3 (17:34→22:54)
[2018-01-18] MEDS: traZODone 100 MG TABLET. PO (20:48)
[2018-01-19] MEDS: MORPHINE SULFATE 4 MG/ML DISP.SYRIN. IV ×3 (00:33→22:05)
[2018-01-19 00:55] LABS: INR 1.2 (0.8-1.1); PROTHROMBIN TIME PATIENT 14.1 SEC (11.7-14.0)
[2018-01-19 01:01] LABS: FIBRINOGEN 290 mg/dL (200-440)
[2018-01-19 03:14] LABS: MRSA BY PCR Negative (Negative)
[2018-01-19] MEDS: oxyCODONE/APAP 5/325 1 TAB TABLET PO ×5 (03:59→21:02)
[2018-01-19 04:13] LABS: ADD MAN DIFF? NO
[2018-01-19 04:57] LABS: BASO % 1 % (0-3); EOS # 0.3 x10^3/uL (0.0-0.7); EOS % 6 % (0-3); HEMATOCRIT 39.8 % (39.0-53.0); HEMOGLOBIN 13.9 g/dL (13.0-17.5); LYMPH # 0.7 x10^3/uL (1.0-4.8); LYMPH % 14 % (24-48); MEAN CORPUSCULAR HEMOGLOBIN 33 pg (25-35); MEAN CORPUSCULAR HGB CONC 35 g/dL (31-37); MEAN CORPUSCULAR VOLUME 94 fL (79-100); MONO # 0.5 x10^3/uL (0.0-1.1); MONO % 10 % (0-9); NEUT # 3.4 x10^3uL (1.8-7.7); NEUT % 70 % (31-73); PLATELET COUNT 252 x10^3/uL (140-400); RED BLOOD COUNT 4.24 x10^6/uL (4.30-5.70); RED CELL DISTRIBUTION WIDTH 13.5 % (11.5-14.5); WHITE BLOOD COUNT 4.9 x10^3/uL (4.0-11.0)
[2018-01-19 05:27] LABS: ANION GAP 0 (6-14); BLOOD UREA NITROGEN 10 mg/dL (8-26); CALCIUM 8.9 mg/dL (8.5-10.1); CARBON DIOXIDE 29 mmol/L (21-32); CHLORIDE 99 mmol/L (98-107); GFR 87.7; GLUCOSE 97 mg/dL (70-99); POTASSIUM 3.7 mmol/L (3.5-5.1); SODIUM 128 mmol/L (136-145)
[2018-01-19 06:33] LABS: INR 1.3 (0.8-1.1)
[2018-01-19 06:38] LABS: FIBRINOGEN 231 mg/dL (200-440)
[2018-01-19 08:54] LABS: PARTIAL THROMBOPLASTIN TIME 44 SEC (24-38)
[2018-01-19] MEDS: FLUoxetine HCL 20 MG CAPSULE PO (09:13)
[2018-01-19] MEDS: FAMOTIDINE 20 MG/2 ML VIAL IVP (09:16)
[2018-01-19] MEDS ORDERED: IODIXANOL 320 MG/ML 100 ML VIAL. ×2 (11:16→11:56)
[2018-01-19] MEDS ORDERED: LIDOCAINE WITH 8.4% SOD BICARB 3 ML DISP.SYRIN. (11:16)
[2018-01-19] MEDS ORDERED: MIDAZOLAM HCL/PF 5 MG/5 ML VIAL. (11:29)
[2018-01-19] MEDS ORDERED: fentaNYL PF VIAL 250 MCG/5 ML VIAL (11:29)
[2018-01-19] MEDS ORDERED: CONTRAST GIVEN MC (12:00)
[2018-01-19] MEDS ORDERED: HEPARIN for IV BOLUS 10,000 UNIT/10 ML VIAL. (12:04)
[2018-01-19] MEDS: IODIXANOL 320 MG/ML 100 ML VIAL. IART (12:57)
[2018-01-19] MEDS: LIDOCAINE WITH 8.4% SOD BICARB 3 ML DISP.SYRIN. IJ (12:58)
[2018-01-19] MEDS: fentaNYL PF VIAL 250 MCG/5 ML VIAL IV (12:59)
[2018-01-19] MEDS: MIDAZOLAM HCL/PF 5 MG/5 ML VIAL. IV (13:00)
[2018-01-19] MEDS: HEPARIN for IV BOLUS 10,000 UNIT/10 ML VIAL. IV (13:01)
[2018-01-19] MEDS: IV NORMAL SALINE 1000ML BAG 1,000 ML IV ×2 (14:00→20:40)
[2018-01-19] MEDS: diphenhydrAMINE 50 MG/ML VIAL IVP (14:00)
[2018-01-19 17:31] LABS: GFR 87.7
[2018-01-19 17:33] LABS: FIBRINOGEN 206 mg/dL (200-440)
[2018-01-19] MEDS: traZODone 100 MG TABLET. PO (20:59)
[2018-01-19] MEDS: FAMOTIDINE 20 MG TABLET. PO (20:59)
[2018-01-20] MEDS: IV NORMAL SALINE 1000ML BAG 1,000 ML IV ×2 (02:27→10:00)
[2018-01-20] MEDS: oxyCODONE/APAP 5/325 1 TAB TABLET PO ×2 (05:51→10:06)
[2018-01-20 06:57] LABS: ADD MAN DIFF? NO
[2018-01-20 07:10] LABS: ANION GAP 8 (6-14); BLOOD UREA NITROGEN 11 mg/dL (8-26); CALCIUM 8.6 mg/dL (8.5-10.1); CARBON DIOXIDE 29 mmol/L (21-32); CHLORIDE 102 mmol/L (98-107); CREATININE 0.9 mg/dL (0.7-1.3); GFR 99.1; GLUCOSE 97 mg/dL (70-99); POTASSIUM 3.8 mmol/L (3.5-5.1); SODIUM 139 mmol/L (136-145)
[2018-01-20 07:13] LABS: BASO # 0.1 x10^3/uL (0.0-0.2); BASO % 1 % (0-3); EOS # 0.3 x10^3/uL (0.0-0.7); EOS % 6 % (0-3); HEMATOCRIT 41.8 % (39.0-53.0); HEMOGLOBIN 14.6 g/dL (13.0-17.5); LYMPH # 0.7 x10^3/uL (1.0-4.8); LYMPH % 14 % (24-48); MEAN CORPUSCULAR HEMOGLOBIN 32 pg (25-35); MEAN CORPUSCULAR HGB CONC 35 g/dL (31-37); MEAN CORPUSCULAR VOLUME 93 fL (79-100); MONO # 0.6 x10^3/uL (0.0-1.1); MONO % 11 % (0-9); NEUT # 3.4 x10^3uL (1.8-7.7); NEUT % 68 % (31-73); PLATELET COUNT 212 x10^3/uL (140-400); RED BLOOD COUNT 4.51 x10^6/uL (4.30-5.70); RED CELL DISTRIBUTION WIDTH 13.7 % (11.5-14.5)
[2018-01-20] MEDS: FAMOTIDINE 20 MG TABLET. PO (09:02)
[2018-01-20] MEDS: FLUoxetine HCL 20 MG CAPSULE PO (09:02)
[2018-01-20] MEDS: MORPHINE SULFATE 4 MG/ML DISP.SYRIN. IV (09:03)
[2018-01-23 19:12] LABS: PROTHROMBIN GENE MUTATION Negative (.)
== END 2018-01-20 12:40 | disposition home or self-care (01) | DRG 271 ==
LOC: 1 WEST ICU 01-18 13:06 → ER 17:35 → 5 NORTH 20:39
PROC: 047L3ZZ Dilation of Left Femoral Artery, Percutaneous Approach (ICD-10-PCS; 2018-01-18)
PROC: 3E03317 Introduction of Other Thrombolytic into Peripheral Vein, Percutaneous Approach (ICD-10-PCS; 2018-01-18)
PROC: B51C1ZZ Fluoroscopy of Left Lower Extremity Veins using Low Osmolar Contrast (ICD-10-PCS; 2018-01-18)
PROC: 047D3ZZ Dilation of Left Common Iliac Artery, Percutaneous Approach (ICD-10-PCS; principal; 2018-01-19)
PROC: 04CL3ZZ Extirpation of Matter from Left Femoral Artery, Percutaneous Approach (ICD-10-PCS; 2018-01-19)
PROC: 04CD3ZZ Extirpation of Matter from Left Common Iliac Artery, Percutaneous Approach (ICD-10-PCS; 2018-01-19)
PROC: 047L3ZZ Dilation of Left Femoral Artery, Percutaneous Approach (ICD-10-PCS; 2018-01-19)
PROC: B51C1ZZ Fluoroscopy of Left Lower Extremity Veins using Low Osmolar Contrast (ICD-10-PCS; 2018-01-19)
DX: T82.868A Thrombosis due to vascular prosthetic devices, implants and grafts, initial encounter (principal); I82.412 Acute embolism and thrombosis of left femoral vein; F17.210 Nicotine dependence, cigarettes, uncomplicated; F17.220 Nicotine dependence, chewing tobacco, uncomplicated; Y83.8 Other surgical procedures as the cause of abnormal reaction of the patient, or of later complication, without mention of misadventure at the time of the procedure; Z79.01 Long term (current) use of anticoagulants; Z86.718 Personal history of other venous thrombosis and embolism; Z95.828 Presence of other vascular implants and grafts; Y92.89 Other specified places as the place of occurrence of the external cause
CPT/HCPCS: 36415; 37212; 37214; 37248; 37249; 70330; 75820; 76937; 80048; 80053; 81001; 81240; 82565; 85025; 85027; 85384; 85610; 85730; 86850; 86900; 86901; 87641; 93005; 96360; 99152; 99153; 99285; 99285-25; A4215; C1725; C1757; C1758; C1769; C1892; C1894; J1200; J1644; J1650; J2250; J2270; J2997; J3010; J7030; J7050; S0028